=== PATIENT | male | born 1950 | race Caucasian/White ===

== ENCOUNTER → 2016-09-20 | Outpatient (CLI) | payer MEDICARE, OTHER | LOC: OD 12:13 | PROVIDERS: ATTEND Family Medicine | DX: M25.562 Pain in left knee (principal) ==

== ENCOUNTER 2016-09-27 05:03 | Inpatient (IN) | payer MEDICARE, OTHER ==
[2016-09-27 07:14] LABS: ABSOLUTE EOSINOPHILS # (AUTO) 0.4 10^3/uL (0.0-0.6); ABSOLUTE LYMPHOCYTES (AUTO) 1.2 10^3/uL (0.5-4.7); ABSOLUTE MONOCYTES (AUTO) 0.8 10^3/uL (0.1-1.4); BASOPHILS % (AUTO) 0.2 % (0-2); EOSINOPHILS % (AUTO) 3.2 % (0-6); HEMATOCRIT 41.8 % (37.9-51.0); HEMOGLOBIN 15.2 g/dL (13.5-17.0); HGB HCT DIFFERENCE 3.8; LYMPHOCYTES % (AUTO) 10.5 % (13-45); MEAN CORPUSCULAR HEMOGLOBIN 31.9 pg (27.0-33.4); MEAN CORPUSCULAR HGB CONC 36.5 g/dL (32.0-36.0); MEAN CORPUSCULAR VOLUME 88 fl (80-97); MONOCYTES % (AUTO) 7.4 % (3-13); RED BLOOD COUNT 4.77 10^6/uL (4.35-5.55); RED CELL DISTRIBUTION WIDTH 12.5 % (11.5-14.0); SEGMENTED NEUTROPHILS % (AUTO) 78.7 % (42-78); WHITE BLOOD COUNT 11.4 10^3/uL (4.0-10.5)
[2016-09-27 07:33] LABS: ALANINE AMINOTRANSFERASE 42 U/L (21-72); ALBUMIN 4.5 g/dL (3.5-5.0); ALKALINE PHOSPHATASE 46 U/L (38-126); ANION GAP 13 (5-19); ASPARTATE AMINO TRANSFERASE 19 U/L (17-59); BILIRUBIN,DIRECT 0.4 mg/dL (0.0-0.4); BILIRUBIN,TOTAL 0.8 mg/dL (0.2-1.3); BLOOD UREA NITROGEN 11 mg/dL (7-20); CALCIUM 10.6 mg/dL (8.4-10.2); CARBON DIOXIDE 25 mmol/L (22-30); CHLORIDE 103 mmol/L (98-107); CREATININE RESULT 0.85 mg/dL (0.52-1.25); GLUCOSE 151 mg/dL (75-110); SODIUM 140.8 mmol/L (137-145); TOTAL PROTEIN 6.9 g/dL (6.3-8.2)
--- NOTE | 2016-09-27 07:44 | ER Document Report ---
ED General - General Chief Complaint: Chest Pain Stated Complaint: ABDOMINAL AND CHEST PAIN Mode of Arrival: Ambulatory Information source: Patient Notes: Patient presents to the emergency department with complaints of abdominal and chest pains. He reports pain started in his lower abdomen on Monday. He had it all day yesterday but became better in the evening. He reports the pain returned early this morning woke him up. He vomited one time this morning. He reports the pain starts in the lower abdomen and radiates up into his chest. He reports the pain comes and goes. Describes it as a soreness, tightness and reports he felt SOB. Patient does have history of reflux. Doesn't think it feels like reflux. Denies fever or trauma diarrhea. Reports last bowel movement was yesterday and was normal. Patient does have a history of HTN, A. fib with an ablation done in 2014. He reports he had a stress test done at that time also. TRAVEL OUTSIDE OF THE [place] IN LAST 30 DAYS: No - HPI Onset: Other - monday Onset/Duration: Waxing and waning Quality of pain: Other Severity: Severe Pain Level: 5 Associated symptoms: Vomiting, Shortness of breath Exacerbated by: Denies Relieved by: Denies Similar symptoms previously: No Recently seen / treated by doctor: No - Related Data Allergies/Adverse Reactions: esomeprazole [From Nexium] Allergy (Verified 09/27/16 05:18) Home Medications: Current Home Medications Amlodipine Besylate [Norvasc 5 mg Tablet] 5 mg PO Q12 09/27/16 [History] Atenolol [Tenormin 50 mg Tablet] 50 mg PO DAILY 09/27/16 [History] Atorvastatin Calcium [Lipitor 10 mg Tablet] 10 mg PO DAILY 09/27/16 [History] Glyburide/Metformin HCl [Glucovance 5-500 mg Tablet] 2 each PO BID 09/27/16 [ History] Lansoprazole [Prevacid 30 mg Odt Tablet] 30 mg PO DAILY 09/27/16 [History] Linagliptin [Tradjenta] 5 mg PO DAILY 09/27/16 [History] Magnesium Oxide [Mag-Ox 400 mg Tablet] 400 mg PO BID 09/27/16 [History] [place]-3 Fatty Acids/Fish Oil [Fish Oil 1,200 mg Softgel] 1 each PO BID 09/27/16 [History] Oxybutynin Chloride [Ditropan 5 mg Tablet] 5 mg PO DAILY 09/27/16 [History] Valsartan [Diovan] 320 mg PO DAILY 09/27/16 [History] Past Medical History - General Information source: Patient - Social History Smoking Status: Current Some Day Smoker Cigarette use (# per day): No - cigars Frequency of alcohol use: Rare Drug Abuse: None Lives with: Family Family History: Reviewed & Not Pertinent Patient has suicidal ideation: No Patient has homicidal ideation: No - Past Medical History Cardiac Medical History: Reports: Hx Atrial Fibrillation, Hx Congestive Heart Failure, Hx Coronary Artery Disease, Hx Hypercholesterolemia, Hx Hypertension Denies: Hx Heart Attack Pulmonary Medical History: Denies: Hx Asthma, Hx Bronchitis, Hx COPD, Hx Pneumonia Neurological Medical History: Denies: Hx Cerebrovascular Accident, Hx Seizures Endocrine Medical History: Reports: Hx Diabetes Mellitus Type 2 Renal/ Medical History: Denies: Hx Peritoneal Dialysis Musculoskeltal Medical History: Denies Hx Arthritis - Immunizations Hx Diphtheria, Pertussis, Tetanus Vaccination: Yes Review of Systems - Review of Systems Notes: Review HPI for review of systems., All other systems negative Physical Exam - Vital signs Vitals: Temp Pulse Resp BP Pulse Ox 97.2 F 62 18 139/91 H 96 09/27/16 05:06 09/27/16 05:06 09/27/16 05:06 09/27/16 05:06 09/27/16 05:06 - Notes Notes: PHYSICAL EXAMINATION: GENERAL: Well-appearing and in no acute distress nontoxic looking HEAD: Atraumatic, normocephalic. EYES: Pupils equal round and reactive to light, extraocular movements intact, sclera anicteric, conjunctiva are normal. ENT: nares patent, oropharynx clear without exudates. Moist mucous membranes. NECK: Normal range of motion, supple without lymphadenopathy LUNGS: CTAB and equal. No wheezes rales or rhonchi. denies chest wall pain HEART: Regular rate and rhythm without murmurs ABDOMEN: Soft, no tenderness. No guarding, no rebound denies abdominal pain with palpation, reports abd is sore EXTREMITIES: Normal range of motion, no pitting edema. No cyanosis. NEUROLOGICAL: Cranial nerves grossly intact. Normal sensory/motor PSYCH: Normal mood, normal affect. SKIN: Warm, Dry, normal turgor, no rashes or lesions noted Course - Re-evaluation Re-evalutation: 09/27/16 11:03 pt reports left sided chest pain, reports it started in his epigastric area, now radiated to left side of his chest. Sublingual nitroglycerin ordered 09/27/16 11:[address] wilson regarding pt c/o, labs, possible admission, he agrees with plan 09/27/16 11:38 Pt reports nitro helped him a little bit. He reports some epigastric tenderness but reports more chest pressure which went from 4/5 to 3/5. Will repeat sublingual nitroglycerin. Second troponin is negative 09/27/16 11:47 Dr Michael leonard thru hospital biological plant operator for admission. 09/27/16 11:57 Dr. Lemus returned page. Updated on patient complained labs EKG. He agrees to the [facility] admission request gallbladder ultrasound. Patient updated on plan for admission. - Vital Signs Vital signs: Temp Pulse Resp BP Pulse Ox 98.1 F 61 13 156/78 H 96 09/27/16 15:50 09/27/16 15:50 09/27/16 17:00 09/27/16 15:50 09/27/16 17:00 - Laboratory Result Diagrams: 09/27/16 07:05 09/27/16 07:05 Laboratory results interpreted by me: 09/27/16 09/27/16 09/27/16 07:05 07:05 07:46 WBC 11.4 H MCHC 36.5 H Seg Neutrophils % 78.7 H Lymphocytes % 10.5 L Absolute Neutrophils 9.0 H Glucose 151 H Calcium 10.6 H Urine Glucose (UA) 150 H - Diagnostic Test Radiology reviewed: Image reviewed, Reports reviewed - Diagnostic report text EXAM DESCRIPTION: CHEST SINGLE VIEW/ portable COMPLETED DATE/TIME: 2016 6:38 am REASON FOR STUDY: chest pain COMPARISON: 01/25/2010 NUMBER OF VIEWS: One view. TECHNIQUE: Single frontal radiographic view of the chest acquired. LIMITATIONS: None. FINDINGS: LUNGS AND PLEURA: No opacities, masses or pneumothorax. No pleural effusion. A minor linear atelectatic marking is seen at the left lung base. MEDIASTINUM AND HILAR STRUCTURES: No masses. Contour normal. HEART AND VASCULAR STRUCTURES: Heart normal in size. Normal vasculature. BONES: No acute findings. HARDWARE: None in the chest. OTHER: No other significant finding. TECHNICAL DOCUMENTATION: JOB ID: [id number] [employer]- All Rights Reserved [id number] RAD/CHEST SINGLE VIEW IMPRESSION: NO SIGNIFICANT RADIOGRAPHIC FINDING IN THE CHEST - EKG Interpretation by Me EKG shows normal: Sinus rhythm Discharge - Discharge Clinical Impression: Abdominal pain Qualifiers: Abdominal location: epigastric Qualified Code(s): R10.13 - Epigastric pain Chest pain Qualifiers: Chest pain type: unspecified Qualified Code(s): R07.9 - Chest pain, unspecified Disposition: ADMITTED INPATIENT Admitting Provider: lemus [facility] Admitted: [facility]
[2016-09-27 07:46] LABS: TROPONIN I < 0.012 ng/mL
[2016-09-27 08:28] LABS: AMORPHOUS SEDIMENT,URINE TRACE /HPF; APPEARANCE,URINE SLIGHTLY-CLOUDY; BILIRUBIN,URINE NEGATIVE (NEGATIVE); GLUCOSE, URINE 150 mg/dL (NEGATIVE); KETONES,URINE NEGATIVE (NEGATIVE); LEUKOCYTE ESTERASE,URINE NEGATIVE (NEGATIVE); NITRITE,URINE NEGATIVE (NEGATIVE); PROTEIN,URINE NEGATIVE (NEGATIVE); URINE SPECIFIC GRAVITY 1.006; UROBILINOGEN,URINE NEGATIVE mg/dL (<2.0)
[2016-09-27] MEDS ORDERED: LIDOCAINE 2% VISCOUS SOLN 20 ML UDCUP PO ONE (09:06)
[2016-09-27] MEDS ORDERED: MAG HYDROX/AL HYDROX/SIMETH SUSP 30 ML UDCUP PO ONE (09:06)
[2016-09-27] MEDS ORDERED: METOCLOPRAMIDE HCL ORAL SOLN 10 MG/10 ML UDCUP PO ONE (09:06)
[2016-09-27] MEDS ORDERED: LANSOPRAZOLE 30 MG TAB.RAP.DR PO ONE (10:38)
[2016-09-27] MEDS ORDERED: ATORVASTATIN CALCIUM 10 MG TABLET PO ONE (10:40)
[2016-09-27] MEDS ORDERED: DABIGATRAN ETEXILATE 150 MG CAPSULE PO ONE (10:41)
[2016-09-27] MEDS ORDERED: AMLODIPINE BESYLATE 5 MG TABLET PO ONE (10:41)
[2016-09-27] MEDS ORDERED: NITROGLYCERIN 0.4 MG/TAB 25 TAB/BOTTLE SL ONE ×2 (11:02→11:37)
--- NOTE | 2016-09-27 11:21 | EKG REPORT ---
SEVERITY:- ABNORMAL ECG - SINUS RHYTHM NONSPECIFIC INTRAVENTRICULAR CONDUCTION DELAY BORDERLINE R WAVE PROGRESSION, ANTERIOR LEADS : Confirmed by: Jamila Ferraro 27-Sep-2016 11:20:38
[2016-09-27 11:29] LABS: PROTHROMBIN TIME 14.9 SEC (11.4-15.4)
[2016-09-27] MEDS ORDERED: ONDANSETRON HCL INJ/PF 4 MG/2 ML SDV IV PRN (11:56)
[2016-09-27] MEDS ORDERED: DEXTROSE 50%-WATER 25 GM/50 ML DISP.SYRIN IV PRN ×2 (12:02)
[2016-09-27] MEDS ORDERED: GLUCAGON,HUMAN RECOMB 1 MG INJ IM PRN (12:02)
[2016-09-27] MEDS ORDERED: DEXTROSE 40% GEL 15 GM TUBE PO PRN ×2 (12:02)
--- NOTE | 2016-09-27 13:15 | PDOC CONSULTATION ---
Consultation Consult Date: 09/27/16 Attending physician:: SHELIA CABRERA Consult reason:: Chest pain and abdominal pain History of Present Illness Admission Date/PCP: 09/27/16 12:09 SHELIA CABRERA MD Patient complains of: Chest pain and abdominal pain History of Present Illness: Patient seen in the emergency department with complaints of abdominal and chest pains. He reports pain started in his central abdomen on Monday. He had it all day yesterday but became better in the evening. He reports the pain returned early this morning woke him up. He vomited one time this morning. He reports the pain starts in the central abdomen and radiates up into his chest. He reports the pain comes and goes. Describes it as a soreness, tightness and reports he felt SOB. Patient does have history of reflux. Doesn't think it feels like reflux. Denies fever or trauma diarrhea. Reports last bowel movement was yesterday and was normal. Patient does have a history of HTN, A. fib with an ablation done in 2014. He reports he had a stress test done at that time also. Patient claims he also had a heart catheterization at that time and was noted to have no coronary artery disease. Patient had ablation done at [facility]. Patient denied any exertional chest pain. He denied any sustained palpitations, syncope, near syncope. Patient does give history of loud snoring. He does have a history of reflux. He is never been tested for sleep apnea. This history was reviewed, supplemented and confirmed. Patient's was available for interview and is the surrogate decision maker. Past Medical History Cardiac Medical History: Reports: Atrial Fibrillation, Congestive Heart Failure , Hyperlipidema, Hypertension Denies: Myocardial Infarction Pulmonary Medical History: Denies: Asthma, Bronchitis, Chronic Obstructive Pulmonary Disease (COPD), Pneumonia Neurological Medical History: Denies: Seizures Endocrine Medical History: Reports: Diabetes Mellitus Type 2 Musculoskeltal Medical History: Denies: Arthritis Past Surgical History Past Surgical History: Reports: Cardiac Catheterization, Orthopedic Surgery - knee, foot, c-spine fusion, Other - Atrial fibrillation ablation Social History Information Source: Patient Lives with: Family Smoking Status: Current Some Day Smoker - Patient smokes cigar now and then. Family History Family History: CAD Parental Family History Reviewed: Yes Children Family History Reviewed: Yes Sibling(s) Family History Reviewed.: Yes - Positive for CAD in siblings Medication/Allergy Home Medications: Amlodipine Besylate [Norvasc 5 mg Tablet] 5 mg PO Q12 09/27/16 Atenolol [Tenormin 50 mg Tablet] 50 mg PO DAILY 09/27/16 Atorvastatin Calcium [Lipitor 10 mg Tablet] 10 mg PO DAILY 09/27/16 Glyburide/Metformin HCl [Glucovance 5-500 mg Tablet] 2 each PO BID 09/27/16 Lansoprazole [Prevacid 30 mg Odt Tablet] 30 mg PO DAILY 09/27/16 Linagliptin [Tradjenta] 5 mg PO DAILY 09/27/16 Magnesium Oxide [Mag-Ox 400 mg Tablet] 400 mg PO BID 09/27/16 [place]-3 Fatty Acids/Fish Oil [Fish Oil 1,200 mg Softgel] 1 each PO BID 09/27/16 Oxybutynin Chloride [Ditropan 5 mg Tablet] 5 mg PO DAILY 09/27/16 Valsartan [Diovan] 320 mg PO DAILY 09/27/16 Allergies/Adverse Reactions: esomeprazole [From Nexium] Allergy (Verified 09/27/16 05:18) Review of Systems Review of Systems: Please see history of present illness and past medical history as wall. Constitutional: No fever or chills reported. Head : No recent chronic headaches, recent head injury. Eyes: No recent eye pain, diplopia, redness, discharge, acute visual changes. Ears: No recent chronic ear pain, acute hearing loss, ear discharge. Oral cavity: No recent ulcerations, bleeding, oral cavity discomfort. Neck: No recent acute neck pain reported. Hematologic: No recent easy bruising or bleeding or hematologic malignancy reported. Lymphatic: No recent lymphatic malignancy, chronic lymphadenopathy reported yet Cardiovascular system review: See history of present illness. Respiratory system review: No recent chronic cough, hemoptysis, blood clots in the lungs reported. Mild Shortness of breath on exertion Gastrointestinal system review: Negative for any recent acute or chronic abdominal pain, hematemesis, melena, recent change in bowel habits. Patient had several days history of central abdominal and chest pain associated with some nausea and vomiting. Genitourinary system review: No recent acute or chronic hematuria, flank pain, UTI etc. reported. Skin system review: Negative for any recent abnormal bruising, no rash, no pruritus reported. Neurologic: No prior history of strokes, mini strokes, seizure disorder. Psychologic: No history of major psychosis or major depression reported. Musculoskeletal: Minor aches and pains reported. No acute joint swelling reported. Endocrine: No recent polyuria, polydipsia, recent heat or cold intolerance. Physical Exam Vital Signs: Temp Pulse Resp BP Pulse Ox 97.2 F 62 15 127/71 H 95 09/27/16 05:06 09/27/16 05:06 09/27/16 11:43 09/27/16 11:43 09/27/16 11:43 Exam: GENERAL: well-nourished and in no acute distress. Alert and oriented x3 HEAD: Atraumatic, normocephalic. EYES: Pupils equal round and reactive to light, extraocular movements intact, sclera anicteric, conjunctiva are normal. ENT: TMs normal, nares patent, oropharynx clear without exudates. Moist mucous membranes. No oral ulcerations or bleeding gums noted NECK: supple without lymphadenopathy. Trachea is central. No cervical or axillary lymphadenopathy noted. Carotids are 2+, JVD WNL LUNGS: Respiration seems nonlabored, no significant accessory muscle action noted. Breath sounds clear to auscultation bilaterally and equal noted. No wheezes rales or rhonchi noted. No significant dullness noted on percussion. CHEST: Palpation of the chest wall shows no significant chest wall tenderness. No other significant abnormalities noted. HEART: Sachse DYE MAKER, No PSH, 1/6 JAMES aortic area, 1/6 rouse systolic murmur mitral area, no rubs, no gallops. ABDOMEN: Soft, no significant tenderness appreciated, normoactive bowel sounds. No guarding, no rebound. No rigidity noted . No masses appreciated. EXTREMITIES: Pedal pulses are 1-2+, no calf tenderness noted. No clubbing or cyanosis.trace to 1+ pedal edema noted NEUROLOGICAL: Focused neurological exam showed no significant neurologic deficit. Normal speech, no focal weakness appreciated. PSYCH: Normal mood, normal affect. Judgment and insight within normal limits. SKIN: No significant ecchymosis, rash, ulcerations or signs of pruritus noted. MUSCULOSKELETAL EXAM: No significant joint swelling noted. Results EKG Comments: Sinus rhythm, no acute ST-T wave changes noted. Impressions: Chest X-Ray 09/27/16 05:46 IMPRESSION: NO SIGNIFICANT RADIOGRAPHIC FINDING IN THE CHEST. Assessment & Plan - Diagnosis (1) Chest pain Qualifiers: Chest pain type: unspecified Qualified Code(s): R07.9 - Chest pain, unspecified (2) Abdominal pain Qualifiers: Abdominal location: epigastric Qualified Code(s): R10.13 - Epigastric pain Is this a current diagnosis for this admission?: Yes (3) Hypertension Qualifiers: Hypertension type: essential hypertension Qualified Code(s): I10 - Essential (primary) hypertension Is this a current diagnosis for this admission?: Yes (4) Dyslipidemia Is this a current diagnosis for this admission?: Yes (5) Obesity Qualifiers: Obesity severity: unspecified obesity severity Is this a current diagnosis for this admission?: Yes (6) Sleep-disordered breathing Is this a current diagnosis for this admission?: Yes (7) Diabetes type 2, controlled Qualifiers: Diabetes mellitus complication status: without complication Diabetes mellitus after school program coordinator insulin use: unspecified after school program coordinator insulin use status Qualified Code(s): E11.9 - Type 2 diabetes mellitus without complications Is this a current diagnosis for this admission?: Yes (8) Atrial fibrillation Qualifiers: Atrial fibrillation type: paroxysmal Qualified Code(s): I48.0 - Paroxysmal atrial fibrillation Is this a current diagnosis for this admission?: Yes - Notes Notes: Chest pain: So far cardiac enzymes and EKG are negative. Patient claims it starts in the abdomen and then radiates to the chest. Patient also had negative cardiac workup less than 2 years ago. At this point will recommend proton pump inhibitor, aspirin, beta mary, and good control of blood pressure with risk factor modification. Further evaluation of abdominal pain. Will consider nuclear stress test and a echocardiogram at a later date. Have ordered EKG to be repeated and also in the morning. Patient's medications reviewed and agree with current management plans. Abdominal pain: Ultrasound of the upper abdomen pending. May consider a CT of the abdomen. Possible small bowel problems, acid reflux, peptic ulcer disease etc. Agree with empiric proton pump inhibitor. Hypertension: Reasonably well controlled. Blood pressure goal in this patient is 135/85 or less. This was discussed with the patient. Currently blood pressure under reasonable control. Better medication for this patient are GIRMA inhibitor/ARB/beta mary etc. discussed side effects of uncontrolled hypertension and also severe hypotension. Diabetes: Recommend good control of blood sugar. However should avoid any hypoglycemia. Patient being expertly managed by primary care MTanvir Hyperlipidemia: LDL goal is less than 70. Recommend statin therapy at least intermediate or high dose, of high potency status. Periodic lipid panel and liver panel is indicated. Patient to report any significant muscle discomfort or other side effects. Sleep disorder breathing: Based on patient's symptoms, oropharyngeal exam, body habitus, comorbid diagnosis etc., there is high probability of underlying sleep apnea syndrome. Evaluation is recommended for sleep apnea as treatment of this condition if found is likely to benefit patient and reduce patient's future cardiovascular risk. Atrial fibrillation: Paroxysmal. Patient also status post ablation. No recent recurrence reported by the patient. Consider event monitor as an outpatient. Obesity: Risk associated with being overweight and obesity discussed. This included both mechanical and metabolic complications. - Time Time Spent: 30 to 50 Minutes - CODE STATUS was discussed, patient remains full code. Surrogate decision-maker patient's . Multiple medical problems were addressed.More than 50% of the time spent coordinating care, discussing management plans with involved caregivers. Management plans discussed with involved personnels. Medical decision making was of moderate to high complexity , patient's has multiple severe comorbidities. Medications reviewed and adjusted accordingly: Yes
--- NOTE | 2016-09-27 15:15 | PDOC H&P ---
History of Present Illness Admission Date/PCP: 09/27/16 11:56 SHELIA CABRERA MD Patient complains of: Chest pain History of Present Illness: Patient seen in the emergency department with complaints of abdominal and chest pains. He reports pain started in his central abdomen on Monday. He had it all day yesterday but became better in the evening. He reports the pain returned early this morning woke him up. He vomited one time this morning. He reports the pain starts in the central abdomen and radiates up into his chest. He reports the pain comes and goes. Describes it as a soreness, tightness and reports he felt SOB. Patient does have history of reflux. Doesn't think it feels like reflux. Denies fever or trauma diarrhea. Reports last bowel movement was yesterday and was normal. Patient does have a history of HTN, A. fib with an ablation done in 2014. He reports he had a stress test done at that time also. Patient claims he also had a heart catheterization at that time and was noted to have no coronary artery disease. Patient had ablation done at [facility]. Patient denied any exertional chest pain. He denied any sustained palpitations, syncope, near syncope. Patient does give history of loud snoring. He does have a history of reflux. He is never been tested for sleep apnea. This history was reviewed, supplemented and confirmed. Patient's was available for interview and is the surrogate decision maker. Past Medical History Cardiac Medical History: Reports: Atrial Fibrillation, Congestive Heart Failure , Coronary Artery Disease, Hyperlipidema, Hypertension Denies: Myocardial Infarction Pulmonary Medical History: Denies: Asthma, Bronchitis, Chronic Obstructive Pulmonary Disease (COPD), Pneumonia Neurological Medical History: Denies: Seizures Endocrine Medical History: Reports: Diabetes Mellitus Type 2 Musculoskeltal Medical History: Denies: Arthritis Past Surgical History Past Surgical History: Reports: Cardiac Catheterization, Orthopedic Surgery - knee, foot, c-spine fusion, Other - Atrial fibrillation ablation Social History Lives with: Family Smoking Status: Current Some Day Smoker - Patient smokes cigar now and then. Family History Family History: CAD Parental Family History Reviewed: Yes Children Family History Reviewed: Yes Sibling(s) Family History Reviewed.: Yes Medication/Allergy Home Medications: Amlodipine Besylate [Norvasc 5 mg Tablet] 5 mg PO Q12 09/27/16 Atenolol [Tenormin 50 mg Tablet] 50 mg PO DAILY 09/27/16 Atorvastatin Calcium [Lipitor 10 mg Tablet] 10 mg PO DAILY 09/27/16 Glyburide/Metformin HCl [Glucovance 5-500 mg Tablet] 2 each PO BID 09/27/16 Lansoprazole [Prevacid 30 mg Odt Tablet] 30 mg PO DAILY 09/27/16 Linagliptin [Tradjenta] 5 mg PO DAILY 09/27/16 Magnesium Oxide [Mag-Ox 400 mg Tablet] 400 mg PO BID 09/27/16 [place]-3 Fatty Acids/Fish Oil [Fish Oil 1,200 mg Softgel] 1 each PO BID 09/27/16 Oxybutynin Chloride [Ditropan 5 mg Tablet] 5 mg PO DAILY 09/27/16 Valsartan [Diovan] 320 mg PO DAILY 09/27/16 Allergies/Adverse Reactions: esomeprazole [From Nexium] Allergy (Verified 09/27/16 05:18) Review of Systems Constitutional: ABSENT: chills, fever(s), headache(s), weight gain, weight loss Eyes: ABSENT: visual disturbances Ears: ABSENT: hearing changes Cardiovascular: PRESENT: chest pain. ABSENT: dyspnea on exertion, edema, orthropnea, palpitations Respiratory: ABSENT: cough, hemoptysis Gastrointestinal: ABSENT: abdominal pain, constipation, diarrhea, hematemesis, hematochezia, nausea, vomiting Genitourinary: ABSENT: dysuria, hematuria Musculoskeletal: ABSENT: joint swelling Integumentary: ABSENT: rash, wounds Neurological: ABSENT: abnormal gait, abnormal speech, confusion, dizziness, focal weakness, syncope Psychiatric: ABSENT: anxiety, depression, homidical ideation, suicidal ideation Endocrine: ABSENT: cold intolerance, heat intolerance, menstrual abnormalities, polydipsia, polyuria Hematologic/Lymphatic: ABSENT: easy bleeding, easy bruising, lymphadenopathy Physical Exam Vital Signs: Temp Pulse Resp BP Pulse Ox 97.2 F 62 13 143/76 H 96 09/27/16 05:06 09/27/16 05:06 09/27/16 13:01 09/27/16 13:01 09/27/16 13:01 General appearance: PRESENT: no acute distress, well-developed, well-nourished Head exam: PRESENT: atraumatic, normocephalic Eye exam: PRESENT: conjunctiva pink, EOMI, PERRLA. ABSENT: scleral icterus Ear exam: PRESENT: normal external ear exam Mouth exam: PRESENT: moist, tongue midline Neck exam: PRESENT: full ROM. ABSENT: carotid bruit, JVD, lymphadenopathy, thyromegaly Respiratory exam: PRESENT: clear to auscultation estefani Cardiovascular exam: PRESENT: RRR. ABSENT: diastolic murmur, rubs, systolic murmur Pulses: PRESENT: normal dorsalis pedis pul, +2 pedal pulses bilateral Vascular exam: PRESENT: normal capillary refill GI/Abdominal exam: PRESENT: normal bowel sounds, soft. ABSENT: distended, guarding, mass, organolmegaly, rebound, tenderness Rectal exam: PRESENT: deferred Neurological exam: PRESENT: alert, awake, oriented to person, oriented to place , oriented to time, oriented to situation, CN II-XII grossly intact. ABSENT: motor sensory deficit Psychiatric exam: PRESENT: appropriate affect, normal mood. ABSENT: homicidal ideation, suicidal ideation Skin exam: PRESENT: dry, intact, warm. ABSENT: cyanosis, rash Results Impressions: Chest X-Ray 09/27/16 05:46 IMPRESSION: NO SIGNIFICANT RADIOGRAPHIC FINDING IN THE CHEST. Abdomen Ultrasound 09/27/16 11:56 IMPRESSION: FATTY LIVER. PANCREAS PARTIALLY OBSCURED. OTHERWISE NORMAL RIGHT UPPER QUADRANT ULTRASOUND. Assessment & Plan - Diagnosis (1) Chest pain Qualifiers: Chest pain type: unspecified Qualified Code(s): R07.9 - Chest pain, unspecified Is this a current diagnosis for this admission?: YesPlan: Certainly patient have enough risk factor for the acute coronary disease will admit the patient and consult the cardiology as per discussed with the cardiology suggest to rule out any underlying abdominal and chest issue beside the cardiac and suggest the order the CT angiogram. Will order the CT angiogram of the chest and abdomen. Patient also see Dr. Donohue as outpatients with a regular cardiology and patient see her Dr. Cabrera in [place] for his A. fib. (2) Atrial fibrillation Qualifiers: Atrial fibrillation type: chronic Qualified Code(s): I48.2 - Chronic atrial fibrillation Is this a current diagnosis for this admission?: YesPlan: Patient's currently stable concurrently on the Pradaxa (3) Abdominal pain Qualifiers: Abdominal location: epigastric Qualified Code(s): R10.13 - Epigastric pain Is this a current diagnosis for this admission?: YesPlan: The symptoms more likely related to the esophageal spasms which is relieved with the nitro and the GI cocktail will put a consult for the GI for possible endoscopy but all the cardiac workup is negative and we also ordered the CT scan of the abdomen and pelvis (4) Diabetes type 2, controlled Qualifiers: Diabetes mellitus complication status: without complication Diabetes mellitus [facility] 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 Qualified Code(s): E11.9 - Type 2 diabetes mellitus without complications Is this a current diagnosis for this admission?: YesPlan: Currently stable continues to current medications (5) Dyslipidemia Is this a current diagnosis for this admission?: YesPlan: Stable continues to current medications (6) Hypertension Qualifiers: Hypertension type: essential hypertension Qualified Code(s): I10 - Essential (primary) hypertension Is this a current diagnosis for this admission?: YesPlan: Stable (7) Obesity Qualifiers: Obesity severity: unspecified obesity severity Is this a current diagnosis for this admission?: YesPlan: Stable - Time Time Spent: 50 to 70 Minutes Medications reviewed and adjusted accordingly: Yes Anticipated discharge: Home Within: Other - Inpatient Certification Medical Necessity: Need Close Monitoring Due to Risk of Patient Decompensation Post Hospital Care: D/C Curriculum And Instruction Specialist Documentation - Plan Summary Plan Summary: Admit in the IMCU consult cardiology and GI and continues to monitor the patient in the hospital discussed with the extensively in the ER about the patient's current condition and test results and discuss with other coordinate care with other physicians
[2016-09-27] MEDS: LANSOPRAZOLE 30 MG TAB.RAP.DR PO SCH (16:54)
[2016-09-27] MEDS: INSULIN LISPRO 100 UNIT/ML 3 ML VIAL SUBCUT PRN ×2 (16:55→22:37)
--- NOTE | 2016-09-27 17:07 | XCELERA REPORT ---
[address] [address] Transthoracic Echocardiogram Report Name: GERARD CHRISTIANSON Age: 65 yrs Gender: Male : 1950 Patient Status: Inpatient Patient Location: \S\[facility]\S\A Study Date: 09/27/2016 02:37 PM Height: 73 in Weight: 252 lb BSA: 2.4 m2 Procedure: A complete two-dimensional transthoracic echocardiogram was performed (2D, M-mode, spectral and color flow Doppler). The study was technically difficult with many images being suboptimal in quality. Reason For Study: chest pain Ordering Physician: JAMILA HEARN Performed By: Agustin Leslie Interpretation Summary The left ventricular ejection fraction is normal. Doppler measurements suggest pseudonormalized left ventricular relaxation, which is associated with grade II/IV or mild to moderate diastolic dysfunction There is borderline concentric left ventricular hypertrophy. The left ventricle is grossly normal size. Wall motion cannot be accurately commented on, but no definite regional wall motion abnormalities noted. The right ventricular systolic function is normal. The right atrium is mildly dilated. The left atrium is moderately dilated. There is a mild amount of mitral regurgitation There is no mitral valve stenosis. No aortic regurgitation is present. There is no aortic valve stenosis There is a trace or physiologic amount of tricuspid regurgitation Tricuspid regurgitation jet envelope not well defined to measure RV systolic pressure accurately. The aortic root is not well visualized but is probably normal size. The inferior vena cava was not well visualized Minimal pericardial effusion. MMode/2D Measurements \T\ Calculations RVDd: 3.2 cm LVIDd: 5.6 cm FS: 31.3 % Ao root diam: 3.7 cm IVSd: 1.0 cm LVIDs: 3.8 cm EDV(Teich): 153.8 ml LVPWd: 1.0 cm ESV(Teich): 63.9 ml Ao root area: 10.9 cm2 EF(Teich): 58.5 % LA dimension: 4.3 cm Doppler Measurements \T\ Calculations MV E max cecilia: MV P1/2t max cecilia: Ao V2 max: LV V1 max P.7 cm/sec 100.7 cm/sec 129.2 cm/sec 5.9 mmHg MV A max cecilia: MV P1/2t: 52.9 msec Ao max PG: LV V1 max: 53.8 cm/sec 6.7 mmHg 121.9 cm/sec MV E/A: 1.9 MVA(P1/2t): 4.2 cm2 MV dec slope: 558.0 cm/sec2 PA V2 max: PI end-d cecilia: TR max cecilia: RAP systole: 101.2 cm/sec 132.7 cm/sec 190.9 cm/sec 10.0 mmHg PA max PG: TR max P.1 mmHg 15.2 mmHg RVSP(TR): 25.2 mmHg Left Ventricle The left ventricle is grossly normal size. There is borderline concentric left ventricular hypertrophy. The left ventricular ejection fraction is normal. Doppler measurements suggest pseudonormalized left ventricular relaxation, which is associated with grade II/IV or mild to moderate diastolic dysfunction. Wall motion cannot be accurately commented on, but no definite regional wall motion abnormalities noted. Right Ventricle The right ventricle is grossly normal size. There is normal right ventricular wall thickness. The right ventricular systolic function is normal. Atria The right atrium is mildly dilated. The left atrium is moderately dilated. Interarterial septum not well visualized and not well dopplered. Cannot comment on ASD/PFO presence. Mitral Valve The mitral valve is grossly normal. There is no mitral valve stenosis. There is a mild amount of mitral regurgitation. Aortic Valve The aortic valve is not well visualized secondary to technical limitations. There is no aortic valve stenosis. No aortic regurgitation is present. Tricuspid Valve The tricuspid valve is not well visualized, but is grossly normal. There is no tricuspid stenosis. There is a trace or physiologic amount of tricuspid regurgitation. Tricuspid regurgitation jet envelope not well defined to measure RV systolic pressure accurately. Pulmonic Valve The pulmonic valve is not well visualized. Great Vessels The aortic root is not well visualized but is probably normal size. The inferior vena cava was not well visualized. Effusions Minimal pericardial effusion. : JAMILA HEARN > Jamila Hearn
[2016-09-27 19:48] LABS: CREATINE KINASE MB 0.82 ng/mL (<4.55)
[2016-09-27 19:52] LABS: TROPONIN I < 0.012 ng/mL
[2016-09-27] MEDS: DABIGATRAN ETEXILATE 150 MG CAPSULE PO SCH (20:00)
--- NOTE | 2016-09-27 20:06 | Progress Note ---
Provider Note Provider Note: Patient's labs were reviewed. Cardiac enzymes 3 negative. EKG has been nonacute. CTA has been negative for any acute pathology. If patient remains stable without any recurrence of chest pain, patient could be discharged from cardiac standpoint with close cardiology follow-up and a stress test scheduled. 2-D echo shows normal LVEF, no significant valvular abnormalities were noted.
[2016-09-27] MEDS: FENOFIBRATE NANOCRYSTALLIZED 145 MG TABLET PO SCH (22:30)
[2016-09-27] MEDS: AMLODIPINE BESYLATE 5 MG TABLET PO SCH (22:31)
[2016-09-27] MEDS: ATENOLOL 50 MG TABLET PO SCH (22:31)
[2016-09-28 02:23] LABS: CREATINE KINASE MB 0.49 ng/mL (<4.55)
[2016-09-28 02:25] LABS: TROPONIN I < 0.012 ng/mL
[2016-09-28] MEDS: LANSOPRAZOLE 30 MG TAB.RAP.DR PO SCH ×2 (05:22→16:31)
--- NOTE | 2016-09-28 07:49 | EKG REPORT ---
SEVERITY:- ABNORMAL ECG - SINUS RHYTHM ABNRM R PROG, CONSIDER ASMI OR LEAD PLACEMENT : Confirmed by: Jamila Ferraro 28-Sep-2016 07:48:33
[2016-09-28 08:17] LABS: ABSOLUTE EOSINOPHILS # (AUTO) 0.4 10^3/uL (0.0-0.6); ABSOLUTE LYMPHOCYTES (AUTO) 1.8 10^3/uL (0.5-4.7); ABSOLUTE MONOCYTES (AUTO) 0.9 10^3/uL (0.1-1.4); ABSOLUTE NEUT (AUTO) 5.1 10^3/uL (1.7-8.2); BASOPHILS % (AUTO) 0.6 % (0-2); EOSINOPHILS % (AUTO) 5.3 % (0-6); HEMATOCRIT 39.4 % (37.9-51.0); HEMOGLOBIN 14.1 g/dL (13.5-17.0); HGB HCT DIFFERENCE 2.9; LYMPHOCYTES % (AUTO) 21.4 % (13-45); MEAN CORPUSCULAR HEMOGLOBIN 31.4 pg (27.0-33.4); MEAN CORPUSCULAR HGB CONC 35.7 g/dL (32.0-36.0); MEAN CORPUSCULAR VOLUME 88 fl (80-97); MONOCYTES % (AUTO) 10.7 % (3-13); RED BLOOD COUNT 4.47 10^6/uL (4.35-5.55); RED CELL DISTRIBUTION WIDTH 12.9 % (11.5-14.0); WHITE BLOOD COUNT 8.3 10^3/uL (4.0-10.5)
--- NOTE | 2016-09-28 08:31 | PDOC PROGRESS REPORT ---
Subjective Progress Note for:: 09/28/16 Subjective:: Patient is currently doing fair still complaining some abdominal discomfort. Patient's all cardiac enzymes negative patient's CT angiogram was also negative. Patient seen by the washing machine assembler and suggest all stable. Patient scheduled to see the endoscopy today. Patient's denied any shortness of the breath denied any chest pain this morning Physical Exam Vital Signs: Temp Pulse Resp BP Pulse Ox 98.5 F 75 16 161/75 H 95 09/28/16 04:57 09/28/16 06:55 09/28/16 04:57 09/28/16 04:57 09/28/16 04:57 Intake & Output 09/27/16 09/28/16 09/29/16 06:59 06:59 06:59 Intake Total 229 Balance 229 Weight 75.9 kg General appearance: PRESENT: no acute distress, well-developed, well-nourished Head exam: PRESENT: atraumatic, normocephalic Eye exam: PRESENT: conjunctiva pink, EOMI, PERRLA. ABSENT: scleral icterus Ear exam: PRESENT: normal external ear exam Mouth exam: PRESENT: moist, tongue midline Neck exam: PRESENT: full ROM. ABSENT: carotid bruit, JVD, lymphadenopathy, thyromegaly Respiratory exam: PRESENT: clear to auscultation estefani Cardiovascular exam: PRESENT: RRR. ABSENT: diastolic murmur, rubs, systolic murmur Pulses: PRESENT: normal dorsalis pedis pul, +2 pedal pulses bilateral Vascular exam: PRESENT: normal capillary refill GI/Abdominal exam: PRESENT: normal bowel sounds, soft. ABSENT: distended, guarding, mass, organolmegaly, rebound, tenderness Rectal exam: PRESENT: deferred Neurological exam: PRESENT: alert, awake, oriented to person, oriented to place , oriented to time, oriented to situation, CN II-XII grossly intact. ABSENT: motor sensory deficit Psychiatric exam: PRESENT: appropriate affect, normal mood. ABSENT: homicidal ideation, suicidal ideation Skin exam: PRESENT: dry, intact, warm. ABSENT: cyanosis, rash Results Laboratory Results: 09/28/16 08:08 09/28/16 08:08 WBC 8.3 RBC 4.47 Hgb 14.1 Hct 39.4 MCV 88 MCH 31.4 MCHC 35.7 RDW 12.9 Plt Count 215 Seg Neutrophils % 62.0 Lymphocytes % 21.4 Monocytes % 10.7 Eosinophils % 5.3 Basophils % 0.6 Absolute Neutrophils 5.1 Absolute Lymphocytes 1.8 Absolute Monocytes 0.9 Absolute Eosinophils 0.4 Absolute Basophils 0.0 09/27/16 09/27/16 09/28/16 19:10 19:10 01:22 Creatine Kinase 60 52 L CK-MB (CK-2) 0.82 Troponin I < 0.012 09/28/16 01:22 Creatine Kinase CK-MB (CK-2) 0.49 Troponin I < 0.012 Impressions: Chest/Abdomen CTA 09/27/16 00:00 IMPRESSION: No CT angio evidence of acute pulmonary emboli. Gross evidence of thoracic aortic dissection. Esophagus X-Ray 09/27/16 00:00 IMPRESSION: Small hiatal hernia with mild gastroesophageal reflux to the mid 3rd of the esophagus Chest X-Ray 09/27/16 05:46 IMPRESSION: NO SIGNIFICANT RADIOGRAPHIC FINDING IN THE CHEST. Abdomen Ultrasound 09/27/16 11:56 IMPRESSION: FATTY LIVER. PANCREAS PARTIALLY OBSCURED. OTHERWISE NORMAL RIGHT UPPER QUADRANT ULTRASOUND. Assessment & Plan - Diagnosis (1) Chest pain Qualifiers: Chest pain type: unspecified Qualified Code(s): R07.9 - Chest pain, unspecified Is this a current diagnosis for this admission?: YesPlan: On initial cardiac workup is negative's will waiting for the GI workup and continues follow with the cardiology patients might need a stress test to continue symptoms (2) Atrial fibrillation Qualifiers: Atrial fibrillation type: paroxysmal Qualified Code(s): I48.0 - Paroxysmal atrial fibrillation Is this a current diagnosis for this admission?: YesPlan: Patient's currently stable concurrently on the Pradaxa (3) Abdominal pain Qualifiers: Abdominal location: epigastric Qualified Code(s): R10.13 - Epigastric pain Is this a current diagnosis for this admission?: YesPlan: The symptoms more likely related to the esophageal spasms which is relieved with the nitro and the GI cocktail will put a consult for the GI for possible endoscopy but all the cardiac workup is negative and we also ordered the CT scan of the abdomen and pelvis (4) Diabetes type 2, controlled Qualifiers: Diabetes mellitus complication status: without complication Diabetes mellitus snf insulin use: unspecified snf insulin use status Qualified Code(s): E11.9 - Type 2 diabetes mellitus without complications Is this a current diagnosis for this admission?: YesPlan: Currently stable continues to current medications (5) Dyslipidemia Is this a current diagnosis for this admission?: YesPlan: Stable continues to current medications (6) Hypertension Qualifiers: Hypertension type: essential hypertension Qualified Code(s): I10 - Essential (primary) hypertension Is this a current diagnosis for this admission?: YesPlan: Stable (7) Obesity Qualifiers: Obesity severity: unspecified obesity severity Is this a current diagnosis for this admission?: Yes - Time Time Spent with patient: 15-24 minutes Medications reviewed and adjusted accordingly: Yes Anticipated discharge: Home, Other Within: Other - Inpatient Certification Medical Necessity: Need Close Monitoring Due to Risk of Patient Decompensation Post Hospital Care: D/C Business Development Professional Documentation - Plan Summary Plan Summary: Discussed with the patient and the about the all the test results and continues follow with the cardiology and the machine programmer
--- NOTE | 2016-09-28 08:47 | PDOC CONSULTATION ---
Consultation Consult Date: 09/27/16 Attending physician:: JAN WALTER Consult reason:: non cardiac chest pain. ultrasound showing fatty liver. negative for cardiac DC, no dissection, no PE History of Present Illness Admission Date/PCP: 09/27/16 11:56 SHELIA LEMUS MD History of Present Illness: patient was admitted under Dr lemus's service came in abdominal pain has seen Dr Potter for a colonoscopy in the past had work up and ruled out for DC, had esophagram done, ? possible spasm patient states does have GERD denies any early satiety there is no melena denies any heavy NSAID use there is no nausea or vomiting patient denies any weight loss small hyperplastic polyps noted on his colonoscopy Past Medical History Cardiac Medical History: Reports: Atrial Fibrillation, Congestive Heart Failure , Coronary Artery Disease, Hyperlipidema, Hypertension Denies: Myocardial Infarction Pulmonary Medical History: Denies: Asthma, Bronchitis, Chronic Obstructive Pulmonary Disease (COPD), Pneumonia Neurological Medical History: Denies: Seizures Endocrine Medical History: Reports: Diabetes Mellitus Type 2 Musculoskeltal Medical History: Denies: Arthritis Past Surgical History Past Surgical History: Reports: Cardiac Catheterization, Orthopedic Surgery - knee, foot, c-spine fusion, Other - Atrial fibrillation ablation Social History Lives with: Family Smoking Status: Current Some Day Smoker - Patient smokes cigar now and then. Frequency of Alcohol Use: None Hx Recreational Drug Use: No Hx Prescription Drug Abuse: No Family History Family History: CAD Parental Family History Reviewed: Yes Children Family History Reviewed: Unknown Sibling(s) Family History Reviewed.: Unknown Medication/Allergy Home Medications: Amlodipine Besylate [Norvasc 5 mg Tablet] 5 mg PO Q12 09/27/16 Atenolol [Tenormin 50 mg Tablet] 50 mg PO DAILY 09/27/16 Atorvastatin Calcium [Lipitor 10 mg Tablet] 10 mg PO DAILY 09/27/16 Glyburide/Metformin HCl [Glucovance 5-500 mg Tablet] 2 each PO BID 09/27/16 Lansoprazole [Prevacid 30 mg Odt Tablet] 30 mg PO DAILY 09/27/16 Linagliptin [Tradjenta] 5 mg PO DAILY 09/27/16 Magnesium Oxide [Mag-Ox 400 mg Tablet] 400 mg PO BID 09/27/16 [place]-3 Fatty Acids/Fish Oil [Fish Oil 1,200 mg Softgel] 1 each PO BID 09/27/16 Oxybutynin Chloride [Ditropan 5 mg Tablet] 5 mg PO DAILY 09/27/16 Valsartan [Diovan] 320 mg PO DAILY 09/27/16 Allergies/Adverse Reactions: esomeprazole [From Nexium] Allergy (Verified 09/27/16 05:18) Review of Systems Constitutional: ABSENT: fever(s), headache(s), night sweats, weakness Eyes: ABSENT: visual disturbances Ears: ABSENT: hearing changes Cardiovascular: ABSENT: edema, orthropnea, palpitations Respiratory: ABSENT: dyspnea, hemoptysis Gastrointestinal: PRESENT: abdominal pain, heartburn. ABSENT: diarrhea, dysphagia, hematemesis, hematochezia, melena Genitourinary: ABSENT: dysuria, hematuria Integumentary: ABSENT: lesions, pruritus Neurological: ABSENT: syncope, tingling, tremor(s) Endocrine: ABSENT: polydipsia, polyphagia, polyuria Hematologic/Lymphatic: ABSENT: easy bruising Physical Exam Vital Signs: Temp Pulse Resp BP Pulse Ox 98.5 F 75 16 161/75 H 95 09/28/16 04:57 09/28/16 06:55 09/28/16 04:57 09/28/16 04:57 09/28/16 04:57 Intake & Output 09/27/16 09/28/16 09/29/16 06:59 06:59 06:59 Intake Total 229 Balance 229 Weight 75.9 kg General appearance: PRESENT: no acute distress, well-developed, well-nourished Head exam: PRESENT: atraumatic, normocephalic Eye exam: PRESENT: EOMI, PERRLA. ABSENT: nystagmus, periorbital swelling, scleral icterus Mouth exam: PRESENT: moist Throat exam: ABSENT: tonsillar exudate, tonsillogmegaly Neck exam: ABSENT: meningismus, tenderness, thyromegaly Respiratory exam: PRESENT: clear to auscultation estefani, symmetrical, unlabored. ABSENT: tachypnea, wheezes Cardiovascular exam: PRESENT: RRR, +S1, +S2 GI/Abdominal exam: PRESENT: soft. ABSENT: Engle's sign, rebound, rigid, tenderness Extremities exam: ABSENT: joint swelling Musculoskeletal exam: PRESENT: full ROM Neurological exam: PRESENT: alert, awake, oriented to person, oriented to place , oriented to time, oriented to situation, CN II-XII grossly intact Skin exam: PRESENT: normal color. ABSENT: mottled, pallor, petechiae, urticaria , vesicles Results Laboratory Results: 09/28/16 08:08 09/28/16 08:08 WBC 8.3 RBC 4.47 Hgb 14.1 Hct 39.4 MCV 88 MCH 31.4 MCHC 35.7 RDW 12.9 Plt Count 215 Seg Neutrophils % 62.0 Lymphocytes % 21.4 Monocytes % 10.7 Eosinophils % 5.3 Basophils % 0.6 Absolute Neutrophils 5.1 Absolute Lymphocytes 1.8 Absolute Monocytes 0.9 Absolute Eosinophils 0.4 Absolute Basophils 0.0 09/27/16 09/27/16 09/28/16 19:10 19:10 01:22 Creatine Kinase 60 52 L CK-MB (CK-2) 0.82 Troponin I < 0.012 09/28/16 01:22 Creatine Kinase CK-MB (CK-2) 0.49 Troponin I < 0.012 Impressions: Chest/Abdomen CTA 09/27/16 00:00 IMPRESSION: No CT angio evidence of acute pulmonary emboli. Gross evidence of thoracic aortic dissection. Esophagus X-Ray 09/27/16 00:00 IMPRESSION: Small hiatal hernia with mild gastroesophageal reflux to the mid 3rd of the esophagus Chest X-Ray 09/27/16 05:46 IMPRESSION: NO SIGNIFICANT RADIOGRAPHIC FINDING IN THE CHEST. Abdomen Ultrasound 09/27/16 11:56 IMPRESSION: FATTY LIVER. PANCREAS PARTIALLY OBSCURED. OTHERWISE NORMAL RIGHT UPPER QUADRANT ULTRASOUND. Assessment & Plan - Diagnosis (1) Abdominal pain Qualifiers: Abdominal location: epigastric Qualified Code(s): R10.13 - Epigastric pain Is this a current diagnosis for this admission?: YesPlan: possible PUD , causing esophageal spasm does have underlying GERD had colonoscopy done in the past will need EGD Risks,benefits and alternatives are discussed with the patient in detail Further recommendations to follow ultrasound sound does show NAFLD negative for DC, no dissection or PE noted - Time Time Spent: 50 to 70 Minutes
[2016-09-28 08:51] LABS: CREATINE KINASE MB 0.43 ng/mL (<4.55)
[2016-09-28 08:58] LABS: TROPONIN I < 0.012 ng/mL
[2016-09-28 09:29] LABS: ALANINE AMINOTRANSFERASE 39 U/L (21-72); ALBUMIN 3.8 g/dL (3.5-5.0); ALKALINE PHOSPHATASE 40 U/L (38-126); ANION GAP 14 (5-19); ASPARTATE AMINO TRANSFERASE 17 U/L (17-59); BILIRUBIN,DIRECT 0.1 mg/dL (0.0-0.4); BILIRUBIN,TOTAL 0.5 mg/dL (0.2-1.3); BLOOD UREA NITROGEN 13 mg/dL (7-20); CALCIUM 9.9 mg/dL (8.4-10.2); CARBON DIOXIDE 22 mmol/L (22-30); CHLORIDE 109 mmol/L (98-107); CREATININE RESULT 0.93 mg/dL (0.52-1.25); GLUCOSE 143 mg/dL (75-110); POTASSIUM 3.8 mmol/L (3.6-5.0); SODIUM 145.4 mmol/L (137-145)
[2016-09-28] MEDS ORDERED: NALOXONE HCL INJ/PF 0.4 MG/1 ML SDV ONE (11:03)
[2016-09-28] MEDS ORDERED: ONDANSETRON HCL INJ/PF 4 MG/2 ML SDV ONE (11:03)
[2016-09-28] MEDS ORDERED: EPINEPHRINE INJ 1 MG/10 ML DISP.SYRIN ONE (11:04)
[2016-09-28] MEDS ORDERED: FENTANYL CITRATE INJ/PF 100 MCG/2 ML AMPUL ONE (11:04)
[2016-09-28] MEDS ORDERED: FLUMAZENIL INJ 0.5 MG/5 ML VIAL IV ONE (11:04)
[2016-09-28] MEDS ORDERED: GLUCAGON,HUMAN RECOMB 1 MG INJ ONE (11:04)
[2016-09-28] MEDS: MIDAZOLAM 2 MG/2 ML INJ ONE ×2 (11:20→11:25)
--- NOTE | 2016-09-28 11:44 | Operative Report ---
Operative Report DATE OF SURGERY: 09/28/16 Operative Report: The risks benefits and alternatives of the procedure explained to the patient in detail and informed consent is obtained that GIF Olympus video scope was inserted into the patient's mouth and hypopharynx the esophagus is identified intubated and insufflated the scope was then advanced through the esophagus stomach and duodenum retroflexion maneuver is done the esophagus stomach and first and second portions of the duodenum examined PREOPERATIVE DIAGNOSIS: Noncardiac chest pain, gastroesophageal reflux disease POSTOPERATIVE DIAGNOSIS: Gastritis. Gastric erosions status post biopsy. Esophagitis OPERATION: EGD with biopsy SURGEON: JAN WALTER ANESTHESIA: Moderate Sedation - 4 mg of Versed, 75 g of fentanyl. Conscious sedation monitoring time 30 minutes. TISSUE REMOVED OR ALTERED: Gastric specimen obtained rule out Helicobacter pylori COMPLICATIONS: None. ESTIMATED BLOOD LOSS: none. INTRAOPERATIVE FINDINGS: As described above. PROCEDURE: Patient tolerated procedure well. He sent back to his room in good condition Can resume previous diet Resume previous activity level Wait on biopsies He is allergic to Nexium and so alternatives acid reduction medications need to be considered Outpatient follow-up
[2016-09-28] MEDS: ATORVASTATIN CALCIUM 10 MG TABLET PO SCH (12:17)
[2016-09-28] MEDS: DABIGATRAN ETEXILATE 150 MG CAPSULE PO SCH ×2 (12:18→17:05)
[2016-09-28] MEDS: AMLODIPINE BESYLATE 5 MG TABLET PO SCH ×2 (12:18→22:44)
[2016-09-28] MEDS: INSULIN LISPRO 100 UNIT/ML 3 ML VIAL SUBCUT PRN ×3 (12:22→22:44)
[2016-09-28] MEDS: ACETAMINOPHEN 325 MG TABLET PO PRN (16:30)
--- NOTE | 2016-09-28 21:18 | EKG REPORT ---
SEVERITY:- OTHERWISE NORMAL ECG - SINUS RHYTHM BORDERLINE LEFT AXIS DEVIATION : Confirmed by: Jamila Ferraro 28-Sep-2016 21:17:32
[2016-09-28] MEDS: ATENOLOL 50 MG TABLET PO SCH (22:43)
[2016-09-28] MEDS: FENOFIBRATE NANOCRYSTALLIZED 145 MG TABLET PO SCH (22:43)
[2016-09-29 04:23] LABS: ABSOLUTE EOSINOPHILS # (AUTO) 0.6 10^3/uL (0.0-0.6); ABSOLUTE LYMPHOCYTES (AUTO) 2.4 10^3/uL (0.5-4.7); ABSOLUTE MONOCYTES (AUTO) 0.9 10^3/uL (0.1-1.4); ABSOLUTE NEUT (AUTO) 3.9 10^3/uL (1.7-8.2); BASOPHILS % (AUTO) 0.4 % (0-2); EOSINOPHILS % (AUTO) 7.9 % (0-6); HEMATOCRIT 37.7 % (37.9-51.0); HEMOGLOBIN 13.7 g/dL (13.5-17.0); HGB HCT DIFFERENCE 3.4; LYMPHOCYTES % (AUTO) 30.7 % (13-45); MEAN CORPUSCULAR HEMOGLOBIN 31.7 pg (27.0-33.4); MEAN CORPUSCULAR HGB CONC 36.3 g/dL (32.0-36.0); MEAN CORPUSCULAR VOLUME 88 fl (80-97); MONOCYTES % (AUTO) 11.6 % (3-13); RED BLOOD COUNT 4.31 10^6/uL (4.35-5.55); RED CELL DISTRIBUTION WIDTH 12.7 % (11.5-14.0); SEGMENTED NEUTROPHILS % (AUTO) 49.4 % (42-78)
[2016-09-29 04:41] LABS: ANION GAP 11 (5-19); BLOOD UREA NITROGEN 11 mg/dL (7-20); CALCIUM 9.4 mg/dL (8.4-10.2); CARBON DIOXIDE 23 mmol/L (22-30); CHLORIDE 106 mmol/L (98-107); CREATININE RESULT 0.89 mg/dL (0.52-1.25); GLUCOSE 109 mg/dL (75-110); POTASSIUM 3.8 mmol/L (3.6-5.0); SODIUM 139.6 mmol/L (137-145)
[2016-09-29] MEDS: LANSOPRAZOLE 30 MG TAB.RAP.DR PO SCH ×2 (05:13→17:05)
--- NOTE | 2016-09-29 06:14 | PDOC PROGRESS REPORT ---
Subjective Progress Note for:: 09/29/16 Subjective:: Patient is currently doing well patient's denied any chest pain denied any shortness of the breath. Patient's have endoscopy done yesterday and Dr. Sanon suggest a continuous the PPI. Patient's cardiac enzymes the troponin is elevated this morning but patient is completely asymptomatic this morning when I saw him. I discussed with the Dr. Glover about this and will repeat the cardiac enzymes and follow with him Physical Exam Vital Signs: Temp Pulse Resp BP Pulse Ox 97.8 F 57 L 16 145/83 H 97 09/28/16 20:29 09/29/16 02:00 09/28/16 20:29 09/28/16 20:29 09/28/16 20:29 Intake & Output 09/27/16 09/28/16 09/29/16 06:59 06:59 06:59 Intake Total 1394 Balance 1394 General appearance: PRESENT: no acute distress, well-developed, well-nourished Head exam: PRESENT: atraumatic, normocephalic Eye exam: PRESENT: conjunctiva pink, EOMI, PERRLA. ABSENT: scleral icterus Ear exam: PRESENT: normal external ear exam Mouth exam: PRESENT: moist, tongue midline Neck exam: PRESENT: full ROM. ABSENT: carotid bruit, JVD, lymphadenopathy, thyromegaly Respiratory exam: PRESENT: clear to auscultation estefani Cardiovascular exam: PRESENT: RRR. ABSENT: diastolic murmur, rubs, systolic murmur Pulses: PRESENT: normal dorsalis pedis pul, +2 pedal pulses bilateral Vascular exam: PRESENT: normal capillary refill GI/Abdominal exam: PRESENT: normal bowel sounds, soft. ABSENT: distended, guarding, mass, organolmegaly, rebound, tenderness Rectal exam: PRESENT: deferred Neurological exam: PRESENT: alert, awake, oriented to person, oriented to place , oriented to time, oriented to situation, CN II-XII grossly intact. ABSENT: motor sensory deficit Psychiatric exam: PRESENT: appropriate affect, normal mood. ABSENT: homicidal ideation, suicidal ideation Skin exam: PRESENT: dry, intact, warm. ABSENT: cyanosis, rash Results Laboratory Results: 09/29/16 03:55 09/29/16 03:55 09/29/16 09/29/16 03:55 03:55 WBC 8.0 RBC 4.31 L Hgb 13.7 Hct 37.7 L MCV 88 MCH 31.7 MCHC 36.3 H RDW 12.7 Plt Count 196 Seg Neutrophils % 49.4 Lymphocytes % 30.7 Monocytes % 11.6 Eosinophils % 7.9 H Basophils % 0.4 Absolute Neutrophils 3.9 Absolute Lymphocytes 2.4 Absolute Monocytes 0.9 Absolute Eosinophils 0.6 Absolute Basophils 0.0 Sodium 139.6 Potassium 3.8 Chloride 106 Carbon Dioxide 23 Anion Gap 11 BUN 11 Creatinine 0.89 Est GFR ( Amer) > 60 Est GFR (Non-Af Amer) > 60 Glucose 109 Calcium 9.4 09/29/16 03:55 Troponin I 0.747 Impressions: Chest/Abdomen CTA 09/27/16 00:00 IMPRESSION: No CT angio evidence of acute pulmonary emboli. Gross evidence of thoracic aortic dissection. Esophagus X-Ray 09/27/16 00:00 IMPRESSION: Small hiatal hernia with mild gastroesophageal reflux to the mid 3rd of the esophagus Chest X-Ray 09/27/16 05:46 IMPRESSION: NO SIGNIFICANT RADIOGRAPHIC FINDING IN THE CHEST. Abdomen Ultrasound 09/27/16 11:56 IMPRESSION: FATTY LIVER. PANCREAS PARTIALLY OBSCURED. OTHERWISE NORMAL RIGHT UPPER QUADRANT ULTRASOUND. Assessment & Plan - Diagnosis (1) Chest pain Qualifiers: Chest pain type: unspecified Qualified Code(s): R07.9 - Chest pain, unspecified Is this a current diagnosis for this admission?: YesPlan: Patient's at this point denied any chest pains with all the workup is negative except patient's cardiac enzymes this morning was elevated will follow with the cardiology at this point patient's currently completely asymptomatic patient is already on aspirin and prdaxa (2) Atrial fibrillation Qualifiers: Atrial fibrillation type: paroxysmal Qualified Code(s): I48.0 - Paroxysmal atrial fibrillation Is this a current diagnosis for this admission?: YesPlan: Patient's currently stable concurrently on the Pradaxa (3) Abdominal pain Qualifiers: Abdominal location: epigastric Qualified Code(s): R10.13 - Epigastric pain Is this a current diagnosis for this admission?: YesPlan: Most likely a gastritis and esophagospasm (4) Diabetes type 2, controlled Qualifiers: Diabetes mellitus complication status: without complication Diabetes mellitus intermodal customer service insulin use: unspecified intermodal customer service insulin use status Qualified Code(s): E11.9 - Type 2 diabetes mellitus without complications Is this a current diagnosis for this admission?: YesPlan: Currently stable continues to current medications (5) Dyslipidemia Is this a current diagnosis for this admission?: YesPlan: Stable continues to current medications (6) Hypertension Qualifiers: Hypertension type: essential hypertension Qualified Code(s): I10 - Essential (primary) hypertension Is this a current diagnosis for this admission?: YesPlan: Stable (7) Obesity Qualifiers: Obesity severity: unspecified obesity severity Is this a current diagnosis for this admission?: Yes - Time Time Spent with patient: 15-24 minutes Medications reviewed and adjusted accordingly: Yes Anticipated discharge: Other Within: Other - Inpatient Certification Medical Necessity: Need Close Monitoring Due to Risk of Patient Decompensation Post Hospital Care: D/C Production Proofreader Documentation - Plan Summary Plan Summary: Continues the current medications will wait for the cardiology recommendations
[2016-09-29] MEDS: DABIGATRAN ETEXILATE 150 MG CAPSULE PO SCH ×2 (09:23→17:05)
[2016-09-29] MEDS: AMLODIPINE BESYLATE 5 MG TABLET PO SCH ×2 (09:23→22:30)
[2016-09-29] MEDS: ATORVASTATIN CALCIUM 10 MG TABLET PO SCH (09:24)
[2016-09-29 10:57] LABS: CREATINE KINASE MB 1.75 ng/mL (<4.55); TROPONIN I 0.575 ng/mL
[2016-09-29] MEDS ORDERED: NITROGLYCERIN 0.4 MG/TAB 25 TAB/BOTTLE ONE (10:58)
[2016-09-29] MEDS ORDERED: MORPHINE SULFATE 10 MG/ML INJ ONE (11:02)
--- NOTE | 2016-09-29 14:27 | EKG REPORT ---
SEVERITY:- NORMAL ECG - SINUS RHYTHM : Confirmed by: Jamila Ferraro 29-Sep-2016 14:26:47
--- NOTE | 2016-09-29 14:27 | EKG REPORT ---
SEVERITY:- NORMAL ECG - SINUS RHYTHM : Confirmed by: Jamila Ferraro 29-Sep-2016 14:26:43
--- NOTE | 2016-09-29 14:30 | PDOC PROGRESS REPORT ---
Subjective Progress Note for:: 09/29/16 Subjective:: Patient has elevated CK's and is followed by Cardiology Had EGD done yesterday patient's biopsy is still pending patient needs to be on a PPI could be esophageal spasm no melena denies any nausea or vomiting Physical Exam Vital Signs: Temp Pulse Resp BP Pulse Ox 97.5 F 59 L 19 153/77 H 99 09/29/16 11:27 09/29/16 11:27 09/29/16 11:27 09/29/16 11:27 09/29/16 11:27 Intake & Output 09/28/16 09/29/16 09/30/16 06:59 06:59 06:59 Intake Total 1402 480 Balance 1402 480 Weight 75.9 kg General appearance: PRESENT: no acute distress, well-developed, well-nourished Head exam: PRESENT: atraumatic, normocephalic Eye exam: PRESENT: EOMI, PERRLA. ABSENT: nystagmus, scleral icterus Mouth exam: PRESENT: moist Throat exam: ABSENT: tonsillar exudate, tonsillogmegaly Neck exam: ABSENT: meningismus, tenderness, thyromegaly Respiratory exam: PRESENT: symmetrical, unlabored. ABSENT: tachypnea, wheezes Cardiovascular exam: PRESENT: RRR, +S1, +S2 Pulses: PRESENT: normal carotid pulses GI/Abdominal exam: PRESENT: soft. ABSENT: rebound, rigid, tenderness Extremities exam: ABSENT: joint swelling Musculoskeletal exam: PRESENT: full ROM Neurological exam: PRESENT: oriented to person, oriented to time, oriented to situation, reflexes normal Psychiatric exam: PRESENT: appropriate affect Skin exam: PRESENT: normal color. ABSENT: mottled, pallor, urticaria, vesicles Results Laboratory Results: 09/29/16 03:55 09/29/16 03:55 09/29/16 09/29/16 03:55 03:55 WBC 8.0 RBC 4.31 L Hgb 13.7 Hct 37.7 L MCV 88 MCH 31.7 MCHC 36.3 H RDW 12.7 Plt Count 196 Seg Neutrophils % 49.4 Lymphocytes % 30.7 Monocytes % 11.6 Eosinophils % 7.9 H Basophils % 0.4 Absolute Neutrophils 3.9 Absolute Lymphocytes 2.4 Absolute Monocytes 0.9 Absolute Eosinophils 0.6 Absolute Basophils 0.0 Sodium 139.6 Potassium 3.8 Chloride 106 Carbon Dioxide 23 Anion Gap 11 BUN 11 Creatinine 0.89 Est GFR ( Amer) > 60 Est GFR (Non-Af Amer) > 60 Glucose 109 Calcium 9.4 09/29/16 09/29/16 09/29/16 03:55 09:51 09:51 Creatine Kinase 81 CK-MB (CK-2) 1.75 Troponin I 0.747 0.575 Impressions: Chest/Abdomen CTA 09/27/16 00:00 IMPRESSION: No CT angio evidence of acute pulmonary emboli. Gross evidence of thoracic aortic dissection. Esophagus X-Ray 09/27/16 00:00 IMPRESSION: Small hiatal hernia with mild gastroesophageal reflux to the mid 3rd of the esophagus Chest X-Ray 09/27/16 05:46 IMPRESSION: NO SIGNIFICANT RADIOGRAPHIC FINDING IN THE CHEST. Abdomen Ultrasound 09/27/16 11:56 IMPRESSION: FATTY LIVER. PANCREAS PARTIALLY OBSCURED. OTHERWISE NORMAL RIGHT UPPER QUADRANT ULTRASOUND. Assessment & Plan - Diagnosis (1) Abdominal pain Qualifiers: Abdominal location: epigastric Qualified Code(s): R10.13 - Epigastric pain Is this a current diagnosis for this admission?: YesPlan: could be due to esophageal spasm, secondary to GERD continue present care wait on biopsy further recommendations to follow - Time Time Spent with patient: 15-24 minutes
[2016-09-29] MEDS ORDERED: DOCUSATE SODIUM 100 MG CAPSULE PO ONE (18:30)
[2016-09-29] MEDS: INSULIN LISPRO 100 UNIT/ML 3 ML VIAL SUBCUT PRN ×2 (18:48→22:33)
[2016-09-29 22:06] LABS: CREATINE KINASE MB 1.08 ng/mL (<4.55)
[2016-09-29 22:09] LABS: TROPONIN I 0.286 ng/mL
[2016-09-29] MEDS: FENOFIBRATE NANOCRYSTALLIZED 145 MG TABLET PO SCH (22:29)
[2016-09-29] MEDS: ATENOLOL 50 MG TABLET PO SCH (22:31)
--- NOTE | 2016-09-29 23:09 | PROGRESS NOTE E ---
Progress Note NAME: GERARD CHRISTIANSON : 1950 AGE: 65Y DATE: 09/29/2016 ROOM: 314 SUBJECTIVE: Note: I was with the patient from 11 a.m. to 11:45 a.m. Note: This has been seen by my partner, Dr. Ferraro, on consultation and he had signed off the case, but the patient started having epigastric pain and his troponin I was rising and, hence, Dr. Rodriguez asked me to re-evaluate the patient. Note: The patient had EGD recently in the hospital which showed gastritis and gastric erosion. The patient when I went to see him had sudden onset of epigastric pain which was reproducible by pressing on the epigastrium. I was there with the patient and we gave him 2 sublingual nitroglycerin and morphine, after which he said the pain was much better, but still there was some discomfort on pressing on the epigastrium. His EKG was within normal limits. The patient denied any shortness of breath, PND or orthopnea. There is no recurrence of atrial fibrillation. The patient has a history of ablation of atrial fibrillation and has remained in sinus rhythm. There is no bleeding on Pradaxa. OBJECTIVE: GENERAL: The patient is moderately obese, in some distress due to epigastric pain. VITAL SIGNS: The patient is afebrile with a temperature of 97.5 degrees Fahrenheit. His 02 saturations are 99% on room air. His pulse is 59 beats per minute, sinus bradycardia. Respiratory rate is 19 per minute. Blood pressure is 153/77. HEENT: Head is atraumatic, normocephalic. Eyes: Pupils are equal, round, regular, and reactive to light and accommodation. Extraocular movements are normal. There is no conjunctival pallor. There is no scleral icterus. Ears: Tympanic membranes are intact. External auditory canals are clear. Nose: There is no deviated nasal septal. There is no inflammation of the nasal mucous membranes. Mouth: Mucous membranes are moist. Tongue is moist. There are no ulcers in the mouth. There is no bleeding from the gums. Throat: There is no redness of the oropharynx. There are no exudates. SKIN: There are no skin rashes, petechia or ecchymosis and no skin lesions. NECK: Supple. There is no JVD. There is no lymphadenopathy. There is no goiter. Trachea is central. LUNGS: Clear to auscultation and percussion. HEART: S1 and S2 are heard. There is no S3 gallop. There is no S4 gallop. There is a systolic murmur in the left sternal border and the apex. There is no rub. ABDOMEN: There is no hepatosplenomegaly. There is epigastric tenderness on pressing which reproduces the patient's pain. Most likely this is GI related but there are confounding factors that the patient's troponin I is elevated and there is no other reason that I can find. Bowel sounds are well heard. EXTREMITIES: Femorals are slightly diminished. Leg pulses are diminished. There is no pedal edema. There is no DVT or cellulitis. There is no cyanosis or clubbing. There is no calf tenderness. CENTRAL NERVOUS SYSTEM: The patient is conscious, awake, alert and oriented x3 with no focal deficits. PSYCHIATRIC: The patient's judgment and insight are intact. His affect is normal. DIAGNOSTIC DATA: The patient's EKG done at 5 o'clock in the morning showed sinus rhythm, within normal limits. I repeated an EKG when he had epigastric pain and the EKG continued to be within normal limits. The patient's white count is 8000, his hemoglobin is 13.7, hematocrit is 37.7, his MCV is 88, and his platelet count is 196,000. The patient's troponin I which initially earlier this morning was 0.747 and prior to that was less than 0.012. His renal functions are normal. His repeat troponin I at 9:51 a.m. showed a troponin I of 0.575. IMPRESSION: 1. EPIGASTRIC PAIN MOST LIKELY GI. 2. ELEVATED TROPONIN I. Cannot rule out non-ST elevation OK, since the patient's chest pain may be masked by the epigastric pain. Although there are no EKG changes, I cannot explain why the troponin I went up and is now coming down. 2. HYPERTENSION. Blood pressure is slightly high; this may be because of the patient's pain. 3. DYSLIPIDEMIA. 4. OBESITY. 5. DIABETES MELLITUS TYPE 2. Controlled diabetes without complications and the patient is noninsulin dependent. 6. ATRIAL FIBRILLATION. RECOMMENDATIONS: Continue the dabigatran and would recommend that the patient be switched to Eliquis, since the dabigatran can cause GI upset and GERD symptoms. Would continue the patient's amlodipine for his blood pressure and also continue Tenormin for rate control of his atrial fibrillation. Note that patient's atrial fibrillation is paroxysmal; it has not recurred after the patient had ablation. Note: Discussed with the patient and the patient's family. Forty-five minutes spent on this patient and the medications were reviewed. Will discuss with Dr. Rodriguez. A repeat troponin I has been ordered by me. Will recheck the patient's EKG and troponin I in the a.m. Also would recommend treating the patient for coronary artery disease along with nitroglycerin and subsequently when the troponin I comes down, the patient can have a stress test. This can be done as an outpatient or an inpatient, depending on the patient's wishes. I will discuss in detail with the patient. Awaiting repeat troponin I and repeat EKG. Note: More than 50% of the time spent on direct patient care and also review of the patient's medications. Will start the patient on nitroglycerin in the morning and also we will talk to the patient about switching dabigatran to Eliquis or Xarelto, since these have less GI effects. Note: The patient is a FULL CODE. His is his surrogate healthcare decision maker. Thanking you. DICTATING PHYSICIAN: IRENE ESQUIVEL M.D. [id number] HAMZAH#: [id number] ID: [id number] JOB#: [id number] ACCT: [id number] cc: >
[2016-09-30 03:41] LABS: ABSOLUTE BASOPHILS # (AUTO) 0.1 10^3/uL (0.0-0.2); ABSOLUTE EOSINOPHILS # (AUTO) 0.8 10^3/uL (0.0-0.6); ABSOLUTE LYMPHOCYTES (AUTO) 2.4 10^3/uL (0.5-4.7); ABSOLUTE MONOCYTES (AUTO) 0.7 10^3/uL (0.1-1.4); BASOPHILS % (AUTO) 0.6 % (0-2); EOSINOPHILS % (AUTO) 10.5 % (0-6); HEMATOCRIT 38.8 % (37.9-51.0); HEMOGLOBIN 13.7 g/dL (13.5-17.0); HGB HCT DIFFERENCE 2.3; LYMPHOCYTES % (AUTO) 30.7 % (13-45); MEAN CORPUSCULAR HEMOGLOBIN 31.2 pg (27.0-33.4); MEAN CORPUSCULAR HGB CONC 35.4 g/dL (32.0-36.0); MEAN CORPUSCULAR VOLUME 88 fl (80-97); MONOCYTES % (AUTO) 8.3 % (3-13); RED BLOOD COUNT 4.41 10^6/uL (4.35-5.55); RED CELL DISTRIBUTION WIDTH 12.7 % (11.5-14.0); SEGMENTED NEUTROPHILS % (AUTO) 49.9 % (42-78)
[2016-09-30 03:56] LABS: ANION GAP 10 (5-19); BLOOD UREA NITROGEN 13 mg/dL (7-20); CALCIUM 9.4 mg/dL (8.4-10.2); CARBON DIOXIDE 24 mmol/L (22-30); CHLORIDE 106 mmol/L (98-107); CREATINE KINASE 57 U/L (55-170); CREATININE RESULT 0.96 mg/dL (0.52-1.25); GLUCOSE 124 mg/dL (75-110); POTASSIUM 4.1 mmol/L (3.6-5.0); SODIUM 139.9 mmol/L (137-145)
[2016-09-30 04:06] LABS: CREATINE KINASE MB 0.82 ng/mL (<4.55); TROPONIN I 0.247 ng/mL
[2016-09-30] MEDS: LANSOPRAZOLE 30 MG TAB.RAP.DR PO SCH ×2 (05:31→17:18)
[2016-09-30] MEDS: ATORVASTATIN CALCIUM 10 MG TABLET PO SCH (09:27)
[2016-09-30] MEDS: APIXABAN 5 MG TABLET PO SCH ×2 (09:28→17:18)
[2016-09-30] MEDS: AMLODIPINE BESYLATE 5 MG TABLET PO SCH ×2 (09:28→22:01)
[2016-09-30] MEDS: DOCUSATE SODIUM 100 MG CAPSULE PO SCH (09:28)
[2016-09-30] MEDS: ISOSORBIDE MONONITRATE 30 MG TAB.ER.24H PO SCH (09:30)
--- NOTE | 2016-09-30 09:42 | EKG REPORT ---
SEVERITY:- NORMAL ECG - SINUS RHYTHM : Confirmed by: Jamila Ferraro 30-Sep-2016 09:41:51
--- NOTE | 2016-09-30 12:30 | PDOC PROGRESS REPORT ---
Subjective Progress Note for:: 09/30/16 Subjective:: Patient is currently doing well patients denied any chest pain denied any abdominal pain no nausea no vomitingPatient's troponin is also coming back and patient seen by Dr. le And suggest that stop the Pradaxa because of the GI side effect and start on Eliquis and he suggest there is no sign of any acute coronary syndromesAnd he want to keep the patient's another day and potentially discharge in the morning if the cardiac enzyme is coming down in patients denied any complaintsAnd scheduled a stress test this office Physical Exam Vital Signs: Temp Pulse Resp BP Pulse Ox 97.6 F 62 18 149/85 H 97 09/30/16 10:17 09/30/16 10:17 09/30/16 10:17 09/30/16 10:17 09/30/16 10:17 Intake & Output 09/29/16 09/30/16 10/01/16 06:59 06:59 06:59 Intake Total 1183 Balance 1183 Weight 107.6 kg General appearance: PRESENT: no acute distress, well-developed, well-nourished Head exam: PRESENT: atraumatic, normocephalic Eye exam: PRESENT: conjunctiva pink, EOMI, PERRLA. ABSENT: scleral icterus Ear exam: PRESENT: normal external ear exam Mouth exam: PRESENT: moist, tongue midline Neck exam: PRESENT: full ROM. ABSENT: carotid bruit, JVD, lymphadenopathy, thyromegaly Respiratory exam: PRESENT: clear to auscultation estefani Cardiovascular exam: PRESENT: RRR. ABSENT: diastolic murmur, rubs, systolic murmur Pulses: PRESENT: normal dorsalis pedis pul, +2 pedal pulses bilateral Vascular exam: PRESENT: normal capillary refill GI/Abdominal exam: PRESENT: normal bowel sounds, soft. ABSENT: distended, guarding, mass, organolmegaly, rebound, tenderness Rectal exam: PRESENT: deferred Neurological exam: PRESENT: alert, awake, oriented to person, oriented to place , oriented to time, oriented to situation, CN II-XII grossly intact. ABSENT: motor sensory deficit Psychiatric exam: PRESENT: appropriate affect, normal mood. ABSENT: homicidal ideation, suicidal ideation Skin exam: PRESENT: dry, intact, warm. ABSENT: cyanosis, rash Results Laboratory Results: 09/30/16 03:13 09/30/16 03:13 09/30/16 09/30/16 03:13 03:13 WBC 8.0 RBC 4.41 Hgb 13.7 Hct 38.8 MCV 88 MCH 31.2 MCHC 35.4 RDW 12.7 Plt Count 196 Seg Neutrophils % 49.9 Lymphocytes % 30.7 Monocytes % 8.3 Eosinophils % 10.5 H Basophils % 0.6 Absolute Neutrophils 4.0 Absolute Lymphocytes 2.4 Absolute Monocytes 0.7 Absolute Eosinophils 0.8 H Absolute Basophils 0.1 Sodium 139.9 Potassium 4.1 Chloride 106 Carbon Dioxide 24 Anion Gap 10 BUN 13 Creatinine 0.96 Est GFR ( Amer) > 60 Est GFR (Non-Af Amer) > 60 Glucose 124 H Calcium 9.4 09/29/16 09/29/16 09/30/16 21:15 21:15 03:13 Creatine Kinase 53 L CK-MB (CK-2) 1.08 0.82 Troponin I 0.286 0.247 09/30/16 09/30/16 03:13 08:58 Creatine Kinase 57 CK-MB (CK-2) Troponin I 0.189 Impressions: Chest/Abdomen CTA 09/27/16 00:00 IMPRESSION: No CT angio evidence of acute pulmonary emboli. Gross evidence of thoracic aortic dissection. Esophagus X-Ray 09/27/16 00:00 IMPRESSION: Small hiatal hernia with mild gastroesophageal reflux to the mid 3rd of the esophagus Chest X-Ray 09/27/16 05:46 IMPRESSION: NO SIGNIFICANT RADIOGRAPHIC FINDING IN THE CHEST. Abdomen Ultrasound 09/27/16 11:56 IMPRESSION: FATTY LIVER. PANCREAS PARTIALLY OBSCURED. OTHERWISE NORMAL RIGHT UPPER QUADRANT ULTRASOUND. Assessment & Plan - Diagnosis (1) Chest pain Qualifiers: Chest pain type: unspecified Qualified Code(s): R07.9 - Chest pain, unspecified Is this a current diagnosis for this admission?: YesPlan: No sign of any acute coronary syndrome but the patient's troponin was slightly elevated and consult with the cardiology and suggest the follow as outpatients if he remains stable in the next 24 hours. (2) Atrial fibrillation Qualifiers: Atrial fibrillation type: paroxysmal Qualified Code(s): I48.0 - Paroxysmal atrial fibrillation Is this a current diagnosis for this admission?: YesPlan: We switched to the Pradaxa to the Eliquis for the camouflage assembler suggestions (3) Abdominal pain Qualifiers: Abdominal location: epigastric Qualified Code(s): R10.13 - Epigastric pain Is this a current diagnosis for this admission?: YesPlan: All resolved (4) Diabetes type 2, controlled Qualifiers: Diabetes mellitus complication status: without complication Diabetes mellitus intermodal owner operator truck driver insulin use: unspecified intermodal owner operator truck driver insulin use status Qualified Code(s): E11.9 - Type 2 diabetes mellitus without complications Is this a current diagnosis for this admission?: YesPlan: Currently stable continues to current medications (5) Dyslipidemia Is this a current diagnosis for this admission?: YesPlan: Stable continues to current medications (6) Hypertension Qualifiers: Hypertension type: essential hypertension Qualified Code(s): I10 - Essential (primary) hypertension Is this a current diagnosis for this admission?: YesPlan: Stable (7) Obesity Qualifiers: Obesity severity: unspecified obesity severity Is this a current diagnosis for this admission?: YesPlan: Stable - Time Time Spent with patient: 15-24 minutes Medications reviewed and adjusted accordingly: Yes Anticipated discharge: Home Within: Other - Inpatient Certification Medical Necessity: Need Close Monitoring Due to Risk of Patient Decompensation Post Hospital Care: D/C Hospital Carrier Documentation - Plan Summary Plan Summary: We will switch the patient's Pradaxa to the Eliquis and continues to all other current home medications follow with the cardiology recommendations and patient' s otherwise a remained stable in the weekend if the camouflage assembler cleared the patient patients can discharge home with the Eliquis and current home medications
[2016-09-30] MEDS: INSULIN LISPRO 100 UNIT/ML 3 ML VIAL SUBCUT PRN ×3 (12:36→22:00)
[2016-09-30] MEDS: ACETAMINOPHEN 325 MG TABLET PO PRN (14:48)
--- NOTE | 2016-09-30 21:29 | PROGRESS NOTE E ---
Progress Note NAME: GERARD CHRISTIANSON : 1950 AGE: 65Y DATE: 09/30/2016 ROOM: 314 SUBJECTIVE: Note, 30 minutes spent with this patient from 10:25 a.m. to 10:55 a.m. The patient denies any further abdominal pain. There is no abdominal epigastric tenderness. There is no chest pain, and the patient remains in sinus rhythm. There is no arrhythmia seen. There are no palpitations. There is no PND or orthopnea. There is no leg edema. There are no TIA or CVA symptoms. Note, medication changes have been made which have been noted in the plan. OBJECTIVE: GENERAL: On examination the patient is moderately obese, in no acute distress. VITAL SIGNS: He is afebrile with a temperature of 97.6 degrees Fahrenheit orally. Pulse is 62 beats per minute. Respirations are 18 per minute. O2 saturations are 97% on room air. Blood pressure is 149/85. HEAD: Atraumatic/normocephalic. EYES: Pupils are equal, round, regular, reactive to light and accommodation. Extraocular movements are normal. There is no conjunctival pallor. There is no scleral icterus. EARS, NOSE, AND THROAT: Negative. NECK: Supple. There is no JVD. There is no lymphadenopathy. The carotids are equal. There is no bruit. There is no goiter. Trachea is central. LUNGS: Clear to auscultation and percussion without any rhonchi, rales, wheezing. HEART: S1, S2 is heard. There is no S3 gallop. There is no S4 gallop. There is a systolic murmur in the left sternal border and the apex. There is no rub. ABDOMEN: Soft. There is no hepatosplenomegaly. There is no epigastric tenderness. Bowel sounds are well heard. There are no tender areas or masses. There is no rebound, guarding, or rigidity. EXTREMITIES: Femorals are slightly diminished. Leg pulses are diminished. There is no femoral bruit. There is no pedal edema. There is no DVT or cellulitis. There is no cyanosis or clubbing. There is no calf tenderness. CENTRAL NERVOUS SYSTEM: The patient is conscious, awake, alert, oriented x3 with no focal deficit. PSYCHIATRIC: The patient's judgement and insight are intact. His affect is normal. DIAGNOSTIC DATA: The patient's white count is 8000, hemoglobin is 13.7, hematocrit is 38.8, and platelet count is 196,000. The patient's troponin-I has gone down to 0.247 and 0.189. The patient's sodium is 139.9, potassium is 4.1, chloride is 106, CO2 is 24, the patient's BUN is 13, creatinine is 0.96, GFR is greater than 60, and her glucose is 124. The patient's EKG is sinus rhythm, within normal limits. IMPRESSION: 1. EPIGASTRIC PAIN, MOST LIKELY SECONDARY TO GI GASTRIC EROSION, GASTRITIS, AND ALSO POSSIBLY THE EFFECT OF PRADAXA. Note the Pradaxa has been discontinued, and the patient has been started on Eliquis after discussions with Dr. Rodriguez, the attending physician. 2. ELEVATED TROPONIN-I. There are no clear-cut anginal symptoms, and there are no EKG changes. The EKG is normal. The etiology of this is not clear. For the patient's protection, I have started him on Imdur which he is tolerating. The patient's other medications have been reviewed. I have discussed with the patient that Pradaxa has GI effects, and Eliquis will be a better drug for him. 3. HYPERTENSION. Blood pressure is slightly up but will manage this as an outpatient. 4. DYSLIPIDEMIA. 5. OBESITY. 6. DIABETES MELLITUS. 7. HISTORY OF ATRIAL FIBRILLATION, STATUS POST ABLATION WITH NO RECURRENCE. 8. EROSIVE GASTRITIS/GASTRITIS, MOST LIKELY THE CAUSE OF THE PATIENT'S EPIGASTRIC PAIN COMPOUNDED BY THE EFFECT OF PRADAXA. RECOMMENDATIONS: His medications have been reviewed. Will keep the patient on Imdur and his other current medications including amlodipine, continue his fenofibrate and atenolol and his Eliquis. Continue his Imdur. I have already discussed with the patient the consideration of starting him on isosorbide mononitrate. In view of the recent GI problem and since the patient is on Eliquis, will start the patient on aspirin at a later date. Continue atorvastatin. I have discussed the EKG findings which have been interpreted by me and also the lab findings including the troponin-I trending down. I will see the patient in the morning and discharge him if stable, and I will give him my cell phone number and will follow him up in the office since he is a patient of ours in the recent past. All questions are answered, and the patient will call me if there are any problems. We will try to see the patient on Monday in the office. All risks discussed with the patient. Note, 30 minutes spent on this patient with more than 50% of the time spent on direct patient care, and the patient's medications have been reviewed. The complexity of the case is high since it is not clear what the troponin-I leak is due to. The patient later as an outpatient will have an echocardiogram and an IV Lexiscan Cardiolite stress test. The patient also is instructed to note for any palpitations and call me immediately if he has that. We will re-examine the patient in the a.m. of 10/01/2016 and discharge him. This has been discussed with Dr. Cher Rodriguez who will not be conservation coordinator this weekend, and hence I will discharge the patient myself. DICTATING PHYSICIAN: IRENE ESQUIVEL M.D. [id number] PHY#: [id number] ID: [id number] JOB#: [id number] ACCT: [id number] cc:IRENE ESQUIVEL M.D. >
[2016-09-30] MEDS: ATENOLOL 50 MG TABLET PO SCH (22:00)
[2016-09-30] MEDS: FENOFIBRATE NANOCRYSTALLIZED 145 MG TABLET PO SCH (22:01)
[2016-10-01 05:09] LABS: HEMATOCRIT 36.9 % (37.9-51.0); HEMOGLOBIN 13.1 g/dL (13.5-17.0); HGB HCT DIFFERENCE 2.4; MEAN CORPUSCULAR HEMOGLOBIN 31.3 pg (27.0-33.4); MEAN CORPUSCULAR HGB CONC 35.6 g/dL (32.0-36.0); MEAN CORPUSCULAR VOLUME 88 fl (80-97); RED BLOOD COUNT 4.19 10^6/uL (4.35-5.55); RED CELL DISTRIBUTION WIDTH 12.7 % (11.5-14.0); WHITE BLOOD COUNT 8.1 10^3/uL (4.0-10.5)
[2016-10-01 05:35] LABS: ANION GAP 11 (5-19); BLOOD UREA NITROGEN 14 mg/dL (7-20); CALCIUM 9.8 mg/dL (8.4-10.2); CARBON DIOXIDE 24 mmol/L (22-30); CHLORIDE 105 mmol/L (98-107); CREATINE KINASE 54 U/L (55-170); CREATININE RESULT 0.99 mg/dL (0.52-1.25); GLUCOSE 134 mg/dL (75-110); POTASSIUM 4.1 mmol/L (3.6-5.0); SODIUM 139.8 mmol/L (137-145)
[2016-10-01 05:52] LABS: CREATINE KINASE MB 0.59 ng/mL (<4.55); TROPONIN I 0.162 ng/mL
[2016-10-01] MEDS: LANSOPRAZOLE 30 MG TAB.RAP.DR PO SCH (05:58)
[2016-10-01] MEDS: AMLODIPINE BESYLATE 5 MG TABLET PO SCH (09:28)
[2016-10-01] MEDS: ATORVASTATIN CALCIUM 10 MG TABLET PO SCH (09:28)
[2016-10-01] MEDS: ISOSORBIDE MONONITRATE 30 MG TAB.ER.24H PO SCH (09:29)
[2016-10-01] MEDS: DOCUSATE SODIUM 100 MG CAPSULE PO SCH (09:29)
[2016-10-01] MEDS: APIXABAN 5 MG TABLET PO SCH (09:50)
--- NOTE | 2016-10-01 09:53 | EKG REPORT ---
SEVERITY:- ABNORMAL ECG - SINUS RHYTHM NONSPECIFIC INTRAVENTRICULAR CONDUCTION DELAY : Confirmed by: Jamila Ferraro 01-Oct-2016 09:53:09
--- NOTE | 2016-10-01 13:32 | PDOC DISCHARGE SUMMARY ---
General - Admit/Disc Date/PCP Admission Date/Primary Care Provider: 09/29/16 15:55 SHELIA CABRERA MD Discharge Date: 10/01/16 - Discharge Diagnosis (1) Chest pain Is this a current diagnosis for this admission?: Yes (2) Abdominal pain Is this a current diagnosis for this admission?: Yes (3) Atrial fibrillation Is this a current diagnosis for this admission?: Yes (4) Diabetes type 2, controlled Is this a current diagnosis for this admission?: Yes (5) Dyslipidemia Is this a current diagnosis for this admission?: Yes (6) Hypertension Is this a current diagnosis for this admission?: Yes (7) Obesity Is this a current diagnosis for this admission?: Yes (8) Sleep-disordered breathing Is this a current diagnosis for this admission?: Yes - Additional Information Resuscitation Status: Full Code Discharge Diet: Diabetic Discharge Activity: Activity As Tolerated Home Medications: Amlodipine Besylate [Norvasc 5 mg Tablet] 5 mg PO Q12 09/27/16 Atenolol [Tenormin 50 mg Tablet] 50 mg PO DAILY 09/27/16 Atorvastatin Calcium [Lipitor 10 mg Tablet] 10 mg PO DAILY 09/27/16 Glyburide/Metformin HCl [Glucovance 5-500 mg Tablet] 2 each PO BID 09/27/16 Lansoprazole [Prevacid 30 mg Odt Tablet] 30 mg PO DAILY 09/27/16 Linagliptin [Tradjenta] 5 mg PO DAILY 09/27/16 Magnesium Oxide [Mag-Ox 400 mg Tablet] 400 mg PO BID 09/27/16 Reading-3 Fatty Acids/Fish Oil [Fish Oil 1,200 mg Softgel] 1 each PO BID 09/27/16 Oxybutynin Chloride [Ditropan 5 mg Tablet] 5 mg PO DAILY 09/27/16 Valsartan [Diovan] 320 mg PO DAILY 09/27/16 Apixaban [Eliquis 5 mg Tablet] 5 mg PO BID #60 tablet 10/01/16 Isosorbide Mononitrate [Imdur 30 mg Tablet.er] 30 mg PO DAILY #30 tab.er.24h History of Present Illness History of Present Illness: GERARD CHRISTIANSON is a 65 year old male, patient of Dr. Cabrera he was admitted on September 27, 2016 when he presented with abdominal and chest pain, the abdominal pain is in the central abdomen he underwent CTA chest on the abdomen and were both negative for any acute vascular disease Hospital Course Hospital Course: He was seen by the sand technician and GI he underwent EGD and he showed erosive gastritis, he was also seen by the sand technician, 2D echo was done which was normal CTA chest and abdomen was done and it was negative patient had episode of epigastric pain that was associated with elevated troponin I because of this event cardiology was consulted by Dr. Cabrera. Patient was seen by Dr. Glover , cardiology on he felt the elevated troponin I was non-cardiac in nature, it flared is probably related to GI event. The anticoagulant was changed from Pradaxa to Eliquis and patient is being discharged home today Physical Exam Vital Signs: Temp Pulse Resp BP Pulse Ox 97.6 F 65 19 160/90 H 97 10/01/16 11:10 10/01/16 11:10 10/01/16 11:10 10/01/16 11:10 10/01/16 11:10 Intake & Output 09/30/16 10/01/16 10/02/16 06:59 06:59 06:59 Intake Total 1183 3611 474 Balance 1183 3611 474 Weight 107.6 kg 107.4 kg General appearance: PRESENT: no acute distress, well-developed, well-nourished Head exam: PRESENT: atraumatic, normocephalic Eye exam: PRESENT: conjunctiva pink, EOMI, PERRLA Ear exam: PRESENT: normal external ear exam Mouth exam: PRESENT: moist, tongue midline Neck exam: PRESENT: full ROM Respiratory exam: PRESENT: clear to auscultation estefani Cardiovascular exam: PRESENT: RRR, +S1, +S2 Pulses: PRESENT: normal dorsalis pedis pul, +2 pedal pulses bilateral Vascular exam: PRESENT: normal capillary refill GI/Abdominal exam: PRESENT: normal bowel sounds, soft Rectal exam: PRESENT: deferred Neurological exam: PRESENT: alert, awake, oriented to person, oriented to place , oriented to time, oriented to situation, CN II-XII grossly intact Psychiatric exam: PRESENT: appropriate affect, normal mood Skin exam: PRESENT: dry, intact, warm Results Laboratory Results: 10/01/16 04:27 10/01/16 04:27 10/01/16 10/01/16 04:27 04:27 WBC 8.1 RBC 4.19 L Hgb 13.1 L Hct 36.9 L MCV 88 MCH 31.3 MCHC 35.6 RDW 12.7 Plt Count 203 Sodium 139.8 Potassium 4.1 Chloride 105 Carbon Dioxide 24 Anion Gap 11 BUN 14 Creatinine 0.99 Est GFR ( Amer) > 60 Est GFR (Non-Af Amer) > 60 Glucose 134 H Calcium 9.8 09/29/16 09/29/16 09/30/16 21:15 21:15 03:13 Creatine Kinase 53 L CK-MB (CK-2) 1.08 0.82 Troponin I 0.286 0.247 09/30/16 09/30/16 10/01/16 03:13 08:58 04:27 Creatine Kinase 57 54 L CK-MB (CK-2) Troponin I 0.189 10/01/16 04:27 Creatine Kinase CK-MB (CK-2) 0.59 Troponin I 0.162 Impressions: Chest/Abdomen CTA 09/27/16 00:00 IMPRESSION: No CT angio evidence of acute pulmonary emboli. Gross evidence of thoracic aortic dissection. Esophagus X-Ray 09/27/16 00:00 IMPRESSION: Small hiatal hernia with mild gastroesophageal reflux to the mid 3rd of the esophagus Chest X-Ray 09/27/16 05:46 IMPRESSION: NO SIGNIFICANT RADIOGRAPHIC FINDING IN THE CHEST. Abdomen Ultrasound 09/27/16 11:56 IMPRESSION: FATTY LIVER. PANCREAS PARTIALLY OBSCURED. OTHERWISE NORMAL RIGHT UPPER QUADRANT ULTRASOUND.
[2016-10-01 14:00] VITALS: BP 164/88
--- NOTE | 2016-10-02 02:58 | PROGRESS NOTE E ---
Progress Note NAME: GERARD CHRISTIANSON : 1950 AGE: 65Y DATE: 10/01/2016 ROOM: 314 SUBJECTIVE: Note, I saw the patient from 8:40 a.m. to 9:10 a.m., a total of 30 minutes including reviewing his medications and discussion with the patient, see below. The patient denies any further abdominal pain. There is no abdominal or epigastric tenderness. There is no rebound, guarding or rigidity. There is no chest pain. The patient remains in sinus rhythm. There are no arrhythmias. There are no palpitations. There is no PND or orthopnea. There is no leg edema. There are no TIA or CVA symptoms. Note that the patient still is in sinus rhythm. OBJECTIVE: GENERAL: On examination, the patient is moderately obese, in no acute distress. He is well groomed. VITAL SIGNS: He is afebrile with a temperature of 98.0 Fahrenheit. His pulse is 62 beats per minute, sinus rhythm on the monitor. Blood pressure is still slightly elevated at 168/87, respiration 20 per minute, O2 sat is 98% on room air. HEENT: Head is atraumatic, normocephalic. EYES: Pupils are equal, round, regular, reactive to light and accommodation. Extraocular movements are normal. There is no conjunctival pallor. There is scleral icterus. EARS: Negative. NECK: Supple. There is no JVD. There is no lymphadenopathy. The carotids are equal. There is no bruit. There is no goiter. Trachea is central. LUNGS: Lungs are clear to auscultation and percussion without any rhonchi, rales, or wheezing. HEART: S1 and S2 are heard. There is no S3 gallop. There is no S4 gallop. A systolic murmur at the left sternal border and the apex. There is no rub. ABDOMEN: Soft and nontender. There is no hepatosplenomegaly. There is no epigastric tenderness. Bowel sounds are well heard. There are no tender areas or masses. There is no rebound, guarding or rigidity. EXTREMITIES: Femorals are slightly diminished. Leg pulses are diminished. There are no femoral bruits. There is no pedal edema. There is no DVT or cellulitis. There is no cyanosis or clubbing. There is no calf tenderness. CENTRAL NERVOUS SYSTEM: The patient is conscious, awake, alert, oriented x3 with no focal deficits. PSYCHIATRIC: The patient's judgment and insight are intact. His affect is normal. DIAGNOSTIC DATA: The patient's EKG in my opinion is within normal limits. I do not see any IVCD as reported officially. LABORATORY DATA: His laboratory data shows a white count of 8100, hemoglobin is 13.1; hematocrit is 36.9; and platelet count is 203,000. The patient's sodium is 139.8, potassium is 4.1, chloride is 105, and CO2 is 24. The patient's BUN is 14, creatinine 0.99, GFR is greater than 60. His glucose is 134. His calcium is 9.8. His troponin I has trended down to 0.162 and his CPK-MB is 0.59. ASSESSMENT: 1. EPIGASTRIC PAIN, MOST LIKELY SECONDARY TO GASTROINTESTINAL/GASTRIC EROSION AND GASTRITIS, POSSIBLY THE EFFECT OF PRADAXA. At present, asymptomatic. Note that the Pradaxa has been discontinued. The patient has been started on Eliquis. He is tolerating this well without symptoms. 2. ELEVATED TROPONIN I. There are no clear-cut anginal symptoms. The EKG is normal. We cannot make out as to what this elevated troponin I is, but with the patient having no clear-cut anginal symptoms and with the patient is having normal EKG, I would recommend that the patient have an outpatient evaluation for the elevated troponin I. The patient has been placed on Imdur. Continue Eliquis, but would not start the patient as soon now on aspirin in view of the patient's recent gastrointestinal problems. 3. HYPERTENSION. Blood pressure is still slightly high, but we will manage this as an outpatient. 4. DYSLIPIDEMIA. 5. OBESITY. 6. DIABETES MELLITUS. 7. HISTORY OF ATRIAL FIBRILLATION, STATUS POST ABLATION WITH NO RECURRENCE. RECOMMENDATION: His medications have been reviewed. I have discussed the medication changes with the patient. I have told him that the dabigatran/Pradaxa has been stopped and the patient is placed on Eliquis. I have also discussed with him the new medications. We will start Imdur 30 mg p.o. daily. Continue with other current medications. The patient has been given my cell number and the patient needs to call me if there are any problems, but anyway, call me on Monday morning, so that I can schedule a visit in the office with a repeat EKG and also schedule the patient for echocardiogram and the Lexiscan Cardiolite stress test. The patient is agreeable to this. TIME SPENT: Note, 30 minutes spent on this patient with more than 50% of time spent in direct patient care. His medications were reviewed and medications were discussed with him. Also, I have discussed with the attending, Dr. Rodriguez, the changes were made in the medications to make sure that the patient gets prescriptions for Eliquis and Imdur, which are new medications and also the patient is cautioned not to take Pradaxa. I have discussed the case with the patient. He understands this. He can call me at any time or cell phone number if there should be any problems. I have asked him to look out for any tightness, pressure, discomfort, or heaviness at rest or with exertion and also any symptoms of palpitations, shortness of breath, PND or orthopnea or any other symptoms. The patient is agreeable. Discussed with the attending physician, Dr. Rodriguez, in detail. Discussed with the nurse. Nurse will later call me with the discharge orders. At a later time, I did go up and briefly saw the patient's discharge medication list and I agree Imdur and Eliquis have been there and Pradaxa has been asked to be discontinued. Thanking you. We will sign off. We will follow up the patient up in the office. Note that Dr. Rodriguez has already spoken to the covering attending that the patient can be discharged today if asymptomatic. This patient does have [id number] complexity in view of the patient's troponin I elevation of unknown cause and hence, he needs to have coronary artery disease ruled out. Since the patient is asymptomatic, we would not send him for a cardiac catheterization unless he has an abnormal stress test. This has been discussed with the patient. Thanking you. DICTATING PHYSICIAN: IRENE ESQUIVEL M.D. [id number] HAMZAH#: [id number] ID: [id number] JOB#: [id number] ACCT: [id number] cc: >
== END 2016-10-01 14:30 | disposition home or self-care (01) | DRG 392 ==
LOC: ER 05:03 → UNDOADMIN 11:56 → EH 11:56 → UNDOADMIN 12:09 → EH 12:09 → 3W 18:35 → EH 09-28 17:05 → 3W 09-28 17:05 → INTOOBSV 09-28 17:05 → OBSVTOIN 09-29 15:55
PROVIDERS: ADMIT Family Medicine; ATTEND Family Medicine
PROC: 0DB68ZX Excision of Stomach, Via Natural or Artificial Opening Endoscopic, Diagnostic (ICD-10-PCS; principal; 2016-09-28 10:00)
DX: K29.00 Acute gastritis without bleeding (principal); K21.0 Gastro-esophageal reflux disease with esophagitis; I11.0 Hypertensive heart disease with heart failure; R07.89 Other chest pain; I50.9 Heart failure, unspecified; I25.10 Atherosclerotic heart disease of native coronary artery without angina pectoris; E78.5 Hyperlipidemia, unspecified; E11.9 Type 2 diabetes mellitus without complications; F17.290 Nicotine dependence, other tobacco product, uncomplicated; Z82.49 Family history of ischemic heart disease and other diseases of the circulatory system; Z79.84 Long term (current) use of oral hypoglycemic drugs; R10.13 Epigastric pain; E66.9 Obesity, unspecified; G47.30 Sleep apnea, unspecified; Z79.4 Long term (current) use of insulin; I48.0 Paroxysmal atrial fibrillation; Z68.31 Body mass index [BMI] 31.0-31.9, adult; Z79.02 Long term (current) use of antithrombotics/antiplatelets; T50.995A Adverse effect of other drugs, medicaments and biological substances, initial encounter
CPT/HCPCS: 36415; 43239; 71010; 71275; 74220; 76705; 80048; 80053; 80076; 81001; 82550; 82553; 82962; 83690; 83880; 84484; 85025; 85027; 85610; 88305; 93005; 93010; 93306; 96372; 99285; G0378; J0171; J1610; J1815; J2250; J2270; J2310; J2405; J3010; J3490

== ENCOUNTER → 2017-04-25 | Outpatient (CLI) | payer MEDICARE, OTHER ==
[2017-04-25 18:13] LABS: PROTHROMBIN TIME 15.4 SEC (11.4-15.4)
[2017-04-25 18:14] LABS: HEMATOCRIT 39.9 % (37.9-51.0); HEMOGLOBIN 14.3 g/dL (13.5-17.0); MEAN CORPUSCULAR HEMOGLOBIN 31.7 pg (27.0-33.4); MEAN CORPUSCULAR HGB CONC 35.7 g/dL (32.0-36.0); MEAN CORPUSCULAR VOLUME 89 fl (80-97); RED CELL DISTRIBUTION WIDTH 13.4 % (11.5-14.0); WHITE BLOOD COUNT 8.2 10^3/uL (4.0-10.5)
[2017-04-25 18:18] LABS: ANION GAP 16 (5-19); BLOOD UREA NITROGEN 16 mg/dL (7-20); CALCIUM 9.6 mg/dL (8.4-10.2); CARBON DIOXIDE 21 mmol/L (22-30); CHLORIDE 104 mmol/L (98-107); CREATININE RESULT 0.91 mg/dL (0.52-1.25); GLUCOSE 147 mg/dL (75-110); POTASSIUM 4.2 mmol/L (3.6-5.0); SODIUM 140.6 mmol/L (137-145)
== END ==
LOC: OD 15:43
PROVIDERS: ATTEND Internal Medicine Clinical Cardiac Electrophysiology
DX: Z01.812 Encounter for preprocedural laboratory examination (principal); I48.91 Unspecified atrial fibrillation; E11.9 Type 2 diabetes mellitus without complications; I10 Essential (primary) hypertension
CPT/HCPCS: 36415; 80048; 85027; 85610

== ENCOUNTER 2017-11-01 17:56 | Emergency (ER) | payer MEDICARE, OTHER ==
[2017-11-01 18:25] VITALS: BP 123/73
--- NOTE | 2017-11-01 18:49 | ER Document Report ---
ED General - General Chief Complaint: Shortness Of Breath Stated Complaint: SHORTNESS OF BREATH Time Seen by Provider: 11/01/17 18:45 Notes: Chief complaint: Right facial weakness and numbness History of complain:( obtained from----patient) 66 years old male presents today with right facial weakness and tingling sensation for the last 4 days. Denies any headache, denies any weakness of the upper limbs or lower limbs. Denies any difficulty in coordination. Denies any difficulty in walking. Denies any numbness tingling sensation over the upper extremities or lower extremities. Has a history of diabetes. Onset: As above gradual last 4 days Duration: Last 4 days Severity: Mild to moderate Quality: Mild Context: Not known Exacerbating factor and relieving factors: REVIEW OF SYSTEMS: CONSTITUTIONAL : Denies fever, chills, or sweats. Denies recent illness. EENT: Denies eye, ear, throat, or mouth pain or symptoms. Denies nasal or sinus congestion or discharge. Denies throat, tongue, or mouth swelling or difficulty swallowing. CARDIOVASCULAR: Denies chest pain. Denies palpitations or racing or irregular heart beat. Denies ankle edema. RESPIRATORY: Denies cough, cold, or chest congestion. Denies shortness of breath, difficulty breathing, or wheezing. GASTROINTESTINAL: Denies distention. Denies nausea, vomiting, or diarrhea. Denies blood in vomitus, stools, or per rectum. Denies black, tarry stools. Denies constipation. GENITOURINARY: Denies difficulty urinating, painful urination, burning, frequency, blood in urine, or discharge. FEMALE GENITOURINARY: Denies vaginal bleeding, heavy or abnormal periods, irregular periods. Denies vaginal discharge or odor. MUSCULOSKELETAL: Denies back or neck pain or stiffness. Denies joint pain or swelling. SKIN: Denies rash, lesions or sores. HEMATOLOGIC : Denies easy bruising or bleeding. LYMPHATIC: Denies swollen, enlarged glands. NEUROLOGICAL: Denies confusion or altered mental status. Denies passing out or loss of consciousness. Denies dizziness or lightheadedness. Denies headache. Denies weakness or paralysis or loss of use of either side. Denies problems with gait or speech. Denies sensory loss, numbness, or tingling. Denies seizures. PSYCHIATRIC: Denies anxiety or stress. Denies depression, suicidal ideation, or homicidal ideation. ALL OTHER SYSTEMS REVIEWED AND NEGATIVE. PHYSICAL EXAMINATION: GENERAL: Well-appearing, well-nourished and in no acute distress. HEAD: Atraumatic, normocephalic. EYES: Pupils equal round and reactive to light, extraocular movements intact, conjunctiva are normal. ENT: Nares patent, oropharynx clear without exudates. Moist mucous membranes. NECK: Normal range of motion, supple without lymphadenopathy LUNGS: Breath sounds clear to auscultation bilaterally and equal. No wheezes rales or rhonchi. HEART: Regular rate and rhythm without murmurs ABDOMEN: Soft, nontender, nondistended abdomen. No guarding, no rebound. No masses appreciated. Examination of genitals-deferred Musculoskeletal: Normal range of motion, no pitting or edema. No cyanosis. NEUROLOGICAL: Right facial weakness noted, including right forehead and eyebrow. With a 6th nerve nuclear palsy... Normal speech, normal gait. Normal sensory, motor exams. Otherwise no focal neurological deficit. No pronator drift. No weakness of the lower extremity. Ambulation is normal no staggering gait. PSYCH: Normal mood, normal affect. SKIN: Warm, Dry, normal turgor, no rashes or lesions noted. Dictation was performed using [employer] voice recognition software TRAVEL OUTSIDE OF THE [place] IN LAST 30 DAYS: No - Related Data Allergies/Adverse Reactions: dabigatran etexilate [From Pradaxa] Allergy (Verified 11/01/17 18:40) esomeprazole [From Nexium] Allergy (Verified 11/01/17 18:40) exenatide [From Bydureon] Allergy (Verified 11/01/17 18:40) Past Medical History - Social History Smoking Status: Current Some Day Smoker Chew tobacco use (# tins/day): No Frequency of alcohol use: None Drug Abuse: None Family History: CAD Patient has suicidal ideation: No Patient has homicidal ideation: No - Past Medical History Cardiac Medical History: Reports: Hx Atrial Fibrillation, Hx Congestive Heart Failure, Hx Coronary Artery Disease, Hx Hypercholesterolemia, Hx Hypertension Denies: Hx Heart Attack Pulmonary Medical History: Denies: Hx Asthma, Hx Bronchitis, Hx COPD, Hx Pneumonia Neurological Medical History: Denies: Hx Cerebrovascular Accident, Hx Seizures Endocrine Medical History: Reports: Hx Diabetes Mellitus Type 2 Renal/ Medical History: Denies: Hx Peritoneal Dialysis Musculoskeltal Medical History: Denies Hx Arthritis Past Surgical History: Reports: Hx Abdominal Surgery - appendectomy, Hx Cardiac Catheterization, Hx Orthopedic Surgery - knee, foot, c-spine fusion, Other - Atrial fibrillation ablation - Immunizations Hx Diphtheria, Pertussis, Tetanus Vaccination: Yes Review of Systems - Review of Systems Notes: Dictated Physical Exam - Vital signs Vitals: Temp Pulse Resp BP Pulse Ox 98.6 F 80 20 123/73 96 11/01/17 18:22 11/01/17 18:22 11/01/17 18:22 11/01/17 18:22 11/01/17 18:22 - Notes Notes: Dictated Course - Re-evaluation Re-evalutation: 11/01/17 20:33 CT of the brain came back normal - Vital Signs Vital signs: Temp Pulse Resp BP Pulse Ox 98.6 F 80 20 123/73 96 11/01/17 18:22 11/01/17 18:22 11/01/17 18:22 11/01/17 18:22 11/01/17 18:22 Discharge - Discharge Clinical Impression: Schumacher's palsy Condition: Fair Disposition: HOME, SELF-CARE Instructions: Schumacher's Palsy ([facility]) Prescriptions: Prednisone 20 mg PO DAILY #7 tablet Valacyclovir HCl [Valtrex] 1,000 mg PO TID #30 tablet Referrals: JAMIA CABRERA MD [Primary Care Provider] - Follow up as needed
--- NOTE | 2017-11-01 19:13 | RADIOLOGY REPORT (SQ) ---
EXAM DESCRIPTION: CT HEAD WITHOUT COMPLETED DATE/TIME: 11/01/2017 6:59 pm REASON FOR STUDY: Facial numbness COMPARISON: 10/02/2014 TECHNIQUE: Axial images acquired through the brain without intravenous contrast. Images reviewed wi th bone, brain and subdural windows. Images stored on PACS. All CT scanners at this facility use dose modulation, iterative reconstruction, and/or weight based d osing when appropriate to reduce radiation dose to as low as reasonably achievable (ALARA). [facility]: Dose Right [facility]: CareDose [facility]: Dose Right [facility]: Teradose 4D [facility]: Smart [email or web address] RADIATION DOSE: CT Rad equipment meets quality standard of care and radiation dose reduction techniq ues were employed. CTDIvol: 53.2 mGy. DLP: 1017 mGy-cm. mGy. LIMITATIONS: None. FINDINGS: VENTRICLES: Normal size and contour. CEREBRUM: No masses. No hemorrhage. No midline shift. No evidence for acute infarction. Normal gra y/white matter differentiation. No areas of low density in the white matter. CEREBELLUM: No masses. No hemorrhage. No alteration of density. No evidence for acute infarction. EXTRAAXIAL SPACES: No fluid collections. No masses. ORBITS AND GLOBE: No intra- or extraconal masses. Normal contour of globe without masses. CALVARIUM: No fracture. PARANASAL SINUSES: No fluid or mucosal thickening. SOFT TISSUES: No mass or hematoma. OTHER: No other significant finding. IMPRESSION: NORMAL BRAIN CT WITHOUT CONTRAST. EVIDENCE OF ACUTE STROKE: NO. COMMENT: Quality ID # [id number]: Final reports with documentation of one or more dose reduction techniques (e.g., Automated exposure control, adjustment of the mA and/or kV according to patient size, use of iterative reconstruction technique) TECHNICAL DOCUMENTATION: JOB ID: [id number] [employer] [facility]- All Rights Reserved Reading location - IP/workstation name: [email or web address]
== END 2017-11-01 20:42 | disposition home or self-care (01) ==
LOC: ER 17:56
DX: G51.0 Bell's palsy (principal); R06.02 Shortness of breath; F17.200 Nicotine dependence, unspecified, uncomplicated; I48.91 Unspecified atrial fibrillation; I50.9 Heart failure, unspecified; E78.00 Pure hypercholesterolemia, unspecified; I11.0 Hypertensive heart disease with heart failure; Z98.1 Arthrodesis status
CPT/HCPCS: 70450; 99284

== ENCOUNTER → 2017-11-03 | Outpatient (CLI) | payer MEDICARE, OTHER ==
[2017-11-03 12:11] LABS: ABSOLUTE EOSINOPHILS # (AUTO) 0.1 10^3/uL (0.0-0.6); ABSOLUTE LYMPHOCYTES (AUTO) 1.2 10^3/uL (0.5-4.7); ABSOLUTE MONOCYTES (AUTO) 0.5 10^3/uL (0.1-1.4); ABSOLUTE NEUT (AUTO) 5.1 10^3/uL (1.7-8.2); BASOPHILS % (AUTO) 0.7 % (0-2); EOSINOPHILS % (AUTO) 1.9 % (0-6); HEMATOCRIT 39.5 % (37.9-51.0); HEMOGLOBIN 13.9 g/dL (13.5-17.0); LYMPHOCYTES % (AUTO) 17.2 % (13-45); MEAN CORPUSCULAR HEMOGLOBIN 31.3 pg (27.0-33.4); MEAN CORPUSCULAR HGB CONC 35.3 g/dL (32.0-36.0); MEAN CORPUSCULAR VOLUME 89 fl (80-97); MONOCYTES % (AUTO) 7.4 % (3-13); PLATELET COUNT 218 10^3/uL (150-450); RED BLOOD COUNT 4.45 10^6/uL (4.35-5.55); RED CELL DISTRIBUTION WIDTH 13.3 % (11.5-14.0); SEGMENTED NEUTROPHILS % (AUTO) 72.8 % (42-78); TOTAL CELLS COUNTED % (AUTO) 100 %
--- NOTE | 2017-11-03 12:32 | RADIOLOGY REPORT (SQ) ---
EXAM DESCRIPTION: CHEST PA/LATERAL COMPLETED DATE/TIME: 11/03/2017 12:14 pm REASON FOR STUDY: SHORTNESS OF BREATH COMPARISON: CT angio chest 09/27/2016 AP chest 09/27/2016 EXAM PARAMETERS: NUMBER OF VIEWS: two views TECHNIQUE: Digital Frontal and Lateral radiographic views of the chest acquired. RADIATION DOSE: NA LIMITATIONS: none FINDINGS: LUNGS AND PLEURA: Minimal left basilar atelectasis or scarring. Lungs are otherwise well inflated and clear. No pleural effusions. No pneumothorax. MEDIASTINUM AND HILAR STRUCTURES: No masses or contour abnormalities. HEART AND VASCULAR STRUCTURES: Heart normal size. No evidence for failure. BONES: No acute findings. HARDWARE: None in the chest. OTHER: No other significant finding. IMPRESSION: Minimal left basilar atelectasis or scarring. TECHNICAL DOCUMENTATION: JOB ID: [id number] [employer]- All Rights Reserved Reading location - IP/workstation name: [email or web address]
[2017-11-03 12:42] LABS: ALANINE AMINOTRANSFERASE 45 U/L (21-72); ALBUMIN 4.6 g/dL (3.5-5.0); ALKALINE PHOSPHATASE 43 U/L (38-126); ANION GAP 16 (5-19); ASPARTATE AMINO TRANSFERASE 27 U/L (17-59); BILIRUBIN,DIRECT 0.5 mg/dL (0.0-0.4); BILIRUBIN,TOTAL 0.6 mg/dL (0.2-1.3); BLOOD UREA NITROGEN 18 mg/dL (7-20); CALCIUM 9.9 mg/dL (8.4-10.2); CARBON DIOXIDE 22 mmol/L (22-30); CHLORIDE 103 mmol/L (98-107); GLUCOSE 190 mg/dL (75-110); POTASSIUM 4.4 mmol/L (3.6-5.0); SODIUM 141.2 mmol/L (137-145); TOTAL PROTEIN 6.9 g/dL (6.3-8.2)
== END ==
LOC: OD 11:27
PROVIDERS: ATTEND Physician Assistant
DX: R06.02 Shortness of breath (principal)
CPT/HCPCS: 36415; 71046; 80053; 83880; 84443; 85025

== ENCOUNTER → 2017-12-04 | Outpatient (CLI) | payer MEDICARE, OTHER ==
[2017-12-05 10:26] LABS: PROSTATE SPECIFIC ANTIGEN 5.7 ng/mL (0.0-4.0); PSA % FREE 21.6 % (.); PSA FREE 1.23 ng/mL
== END ==
LOC: OD 13:32
PROVIDERS: ATTEND Urology
DX: R97.20 Elevated prostate specific antigen [PSA] (principal)
CPT/HCPCS: 36415; 84154

== ENCOUNTER 2019-12-15 11:26 | Emergency (ER) | payer MEDICARE, OTHER ==
[2019-12-15 13:17] LABS: ABSOLUTE BASOPHILS # (AUTO) 0.1 10^3/uL (0.0-0.2); ABSOLUTE EOSINOPHILS # (AUTO) 0.2 10^3/uL (0.0-0.6); ABSOLUTE LYMPHOCYTES (AUTO) 1.5 10^3/uL (0.5-4.7); ABSOLUTE MONOCYTES (AUTO) 0.7 10^3/uL (0.1-1.4); ABSOLUTE NEUT (AUTO) 3.9 10^3/uL (1.7-8.2); EOSINOPHILS % (AUTO) 3.8 % (0-6); HEMATOCRIT 44.9 % (37.9-51.0); HEMOGLOBIN 15.6 g/dL (13.5-17.0); MEAN CORPUSCULAR HEMOGLOBIN 31.4 pg (27.0-33.4); MEAN CORPUSCULAR HGB CONC 34.8 g/dL (32.0-36.0); MEAN CORPUSCULAR VOLUME 90 fl (80-97); MONOCYTES % (AUTO) 10.5 % (3-13); PLATELET COUNT 214 10^3/uL (150-450); RED BLOOD COUNT 4.97 10^6/uL (4.35-5.55); SEGMENTED NEUTROPHILS % (AUTO) 60.7 % (42-78); TOTAL CELLS COUNTED % (AUTO) 100 %; WHITE BLOOD COUNT 6.4 10^3/uL (4.0-10.5)
--- NOTE | 2019-12-15 13:25 | ER Document Report ---
ED General - General Chief Complaint: Bloody Stools Stated Complaint: BLOOD IN STOOL/POST BIOPSY Time Seen by Provider: 12/15/19 12:31 Primary Care Provider: SHELIA CABRERA MD [Primary Care Provider] - Follow up as needed Notes: HPI: 69-year-old male with past medical history as recorded including a prostate biopsy yesterday on [facility] who is had a small amount of clots and hematuria last night and today. He also had a bowel movement and believes he may have had a little blood in his stool. He states the same thing happened his last prostate biopsy a few years ago. He denies any and all abdominal pain. He is only had one bowel movement 24 hours. No history of GI bleeding. No fevers, vomiting, or other concerns. Patient states that he is not having any trouble urinating or pain with urination. Patient does have a picture of a toilet bowl showing some mild hematuria. He states this was after he did have a bowel movement and urinated into the toilet bowl this was his one episode. ROS: See HPI All other review of systems reviewed and otherwise negative Reviewed vital signs and nursing note as charted by RN. PHYSICAL EXAM: CONSTITUTIONAL: Alert and oriented and responds appropriately to questions. Well-appearing; well-nourished HEAD: Normocephalic; atraumatic EYES: PERRL; sclera is not pale CARD: Regular rate and rhythm; no murmurs; symmetric distal pulses RESP: Normal chest excursion without splinting or tachypnea; breath sounds clear and equal bilaterally ABD/GI: Normal bowel sounds; non-distended; soft, non-tender to deep palpation of all 4 quadrants of the abdomen GI/: Patient has no perirectal lesions. No blood noted at the urethral meatus. No gross blood on rectal examination with very minimally Hemoccult positive stool BACK: The back appears normal and is non-tender to palpation EXT: Normal ROM in all joints; non-tender to palpation; no edema SKIN: No acute lesions noted NEURO: CN 2-12 intact; 5/5 bilateral upper and lower extremity strength with sensation intact to light touch PSYCH: The patient's mood and manner are appropriate. Grooming and personal hygiene are appropriate. TRAVEL OUTSIDE OF THE [place] IN LAST 30 DAYS: No - Related Data Allergies/Adverse Reactions: dabigatran etexilate [From Pradaxa] Allergy (Verified 12/15/19 13:11) esomeprazole [From Nexium] Allergy (Verified 12/15/19 13:11) exenatide [From Bydureon] Allergy (Verified 12/15/19 13:11) Past Medical History - Social History Smoking Status: Unknown if Ever Smoked Family History: CAD - Past Medical History Cardiac Medical History: Reports: Hx Atrial Fibrillation, Hx Congestive Heart Failure, Hx Coronary Artery Disease, Hx Hypercholesterolemia, Hx Hypertension Denies: Hx Heart Attack Pulmonary Medical History: Denies: Hx Asthma, Hx Bronchitis, Hx COPD, Hx Pneumonia Neurological Medical History: Denies: Hx Cerebrovascular Accident, Hx Seizures Endocrine Medical History: Reports: Hx Diabetes Mellitus Type 2 Renal/ Medical History: Denies: Hx Peritoneal Dialysis Musculoskeletal Medical History: Denies Hx Arthritis Past Surgical History: Reports: Hx Abdominal Surgery - appendectomy, Hx Cardiac Catheterization, Hx Orthopedic Surgery - knee, foot, c-spine fusion, Other - Atrial fibrillation ablation - Immunizations Hx Diphtheria, Pertussis, Tetanus Vaccination: Yes Physical Exam - Vital signs Vitals: Temp Pulse Resp BP Pulse Ox 98.4 F 70 16 135/75 H 95 12/15/19 11:52 12/15/19 11:52 12/15/19 11:52 12/15/19 11:52 12/15/19 11:52 Course - Re-evaluation Re-evalutation: Given the history and physical with a prostate biopsy yesterday, some mild hematuria, 1 bowel movement 24 hours with no abdominal discomfort, lightheadedness or dizziness, on Eliquis, I will obtain a hemoglobin level and observe the patient for period of time to see if he has a repeat bowel movement. 12/15/19 13:24 No repeat bowel movement yet. No urge to defecate. Hemoglobin as recorded. Vital signs are stable. 12/15/19 13:56 Labs as recorded. I did speak to the primary care physician he feels very comfortable with the patient going home and following up tomorrow in the office. I agree. Patient is also comfortable with this plan. Patient will be discharged home with strict return precautions. - Vital Signs Vital signs: Temp Pulse Resp BP Pulse Ox 98.4 F 70 16 135/75 H 95 12/15/19 11:52 12/15/19 11:52 12/15/19 11:52 12/15/19 11:52 12/15/19 11:52 - Laboratory Result Diagrams: 12/15/19 13:02 12/15/19 13:02 Laboratory results interpreted by me: 12/15/19 13:02 Sodium 135.7 L Glucose 140 H Discharge - Discharge Clinical Impression: Blood in stool Hematuria Qualifiers: Hematuria type: unspecified type Qualified Code(s): R31.9 - Hematuria, unspecified Condition: Good Disposition: HOME, SELF-CARE Additional Instructions: Come back immediately for any repeat bleeding, fever, lightheadedness, dizziness, pain with urination, inability urinate, or any other acute problems. Please follow-up with your primary care physician tomorrow as we have expedited for you. Referrals: SHELIA CABRERA MD [Primary Care Provider] - Follow up as needed
[2019-12-15 13:40] LABS: ALBUMIN 4.5 g/dL (3.5-5.0); ALKALINE PHOSPHATASE 42 U/L (38-126); ANION GAP 9 (5-19); ASPARTATE AMINO TRANSFERASE 29 U/L (17-59); BILIRUBIN,TOTAL 0.7 mg/dL (0.2-1.3); BLOOD UREA NITROGEN 19 mg/dL (7-20); CALCIUM 9.8 mg/dL (8.4-10.2); CARBON DIOXIDE 23 mmol/L (22-30); CHLORIDE 104 mmol/L (98-107); GLUCOSE 140 mg/dL (75-110); POTASSIUM 4.5 mmol/L (3.6-5.0); TOTAL PROTEIN 7.1 g/dL (6.3-8.2)
[2019-12-15 14:24] VITALS: BP 125/64
== END 2019-12-15 14:23 | disposition home or self-care (01) ==
LOC: ER 11:26
DX: R19.5 Other fecal abnormalities (principal); R31.9 Hematuria, unspecified; Z98.890 Other specified postprocedural states; Z79.01 Long term (current) use of anticoagulants; Z88.8 Allergy status to other drugs, medicaments and biological substances; I48.91 Unspecified atrial fibrillation; I50.9 Heart failure, unspecified; I25.10 Atherosclerotic heart disease of native coronary artery without angina pectoris; I11.0 Hypertensive heart disease with heart failure; E11.9 Type 2 diabetes mellitus without complications
CPT/HCPCS: 36415; 80053; 85025; 86850; 86900; 86901; 99283